=== PATIENT | female | born 1985 | race Caucasian/White ===

== ENCOUNTER 2017-02-22 21:17 | Emergency (ER) | payer OTHER ==
[2017-02-22] MEDS ORDERED: Proparacaine 0.5% Ophth Soln 15 ML Bottle EYELF ONE (21:41)
--- NOTE | 2017-02-22 21:41 | EDM.PDOC ---
ED HPI GENERAL MEDICAL PROBLEM - General Chief Complaint: Eye Problems Stated Complaint: PAIN IN LEFT Time Seen by Provider: 02/22/17 21:38 Source of Information: Reports: Patient History Limitations: Reports: No Limitations - History of Present Illness INITIAL COMMENTS - FREE TEXT/NARRATIVE: HISTORY AND PHYSICAL: []31-year-old female presents with left eye pain that started this morning. she relates no injury History of Present Illness: [Patient awakened this morning and had eye pain continues to have eye pain 9:40 at night] Review of Systems: As per history of present illness and below otherwise all systems reviewed and negative. Past medical history: As per history of present illness and as reviewed below otherwise noncontributory. Surgical history: As per history of present illness and as reviewed below otherwise noncontributory. Social history: No reported history of drug or alcohol abuse. Family history: As per history of present illness and as reviewed below otherwise noncontributory. Physical exam: Patient is sitting quietly on rubbing her eyes she states she only started rubbing her eye a couple hours ago. SHe did try irrigation with saline HEENT: Atraumatic, normocehpalic, pupils reactive, negative for conjunctival pallor or scleral icterus, mucous membranes moist, throat clear, neck supple, nontender, trachea midline. Lungs: Clear to auscultation, breath sounds equal bilaterally, chest non tender. Heart: S1S2, regular, negative for clicks, rubs, or JVD. Neuro: Awake, alert, oriented. Cranial nerves II through XII unremarkable. Cerebellum unremarkable. Motor and sensory unremarkable throughout. Exam nonfocal. Proparacaine drops were instilled in the left eye with appropriate anesthesia effect fluorescein strip was utilized under a Wood's lamp no abrasions or foreign bodies were noted. Mild edema noted to the inner portion of her upper eyelid towards the inner canthus.irrigation of 50 mL normal saline Diagnostics: [] Therapeutics: [Proparacaine drops] Impression: []#1 eye pain #2 stye Plan: []Tobramycin ophthalmic drops 2 drops 3 times a day 3 days Definitive disposition and diagnosis as appropriate pending reevaluation and review of above. 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: Musculoskeletal History: Reports: Fracture Neurological History: Reports: None Psychiatric History: Reports: Bipolar, Depression Endocrine/Metabolic History: Reports: None Hematologic History: Reports: None Immunologic History: Reports: None Oncologic (Cancer) History: Reports: None Dermatologic History: Reports: None - Past Surgical History HEENT Surgical History: Reports: Adenoidectomy, Myringotomy w Tube(s), Tonsillectomy Female Surgical History: Reports: Section, Tubal Ligation Social & Family History - Family History Family Medical History: Noncontributory - Tobacco Use Smoking Status *Q: Current Every Day Smoker (ppd) Years of Tobacco use: 18 Packs/Tins Daily: 1 Used Tobacco, but Quit: No Second Hand Smoke Exposure: Yes - Recreational Drug Use Recreational Drug Use: No Drug Use in Last 12 Months: No ED ROS GENERAL - Review of Systems Review Of Systems: ROS reveals no pertinent complaints other than HPI. ED EXAM GENERAL W FULL EYE - Physical Exam Exam: See Below (see dictation) Course - Vital Signs Last Recorded V/S: Last Vital Signs Temp 36.6 C 02/22/17 21:36 Pulse 89 02/22/17 21:36 Resp 18 02/22/17 21:36 BP 107/70 02/22/17 21:36 Pulse Ox 97 02/22/17 21:36 - Orders/Labs/Meds Meds: Medications Discontinued Medications Generic Name Dose Route Start Last Admin Trade Name Mariola PRN Reason Stop Dose Admin Proparacaine HCl 2 ml 02/22/17 21:41 Proparacaine 0.5% Ophth Soln EYELF 02/22/17 21:42 ONETIME ONE Water 100 ml 02/22/17 21:54 Eye Wash Irrigation Soln EYELF 02/22/17 21:55 ONETIME ONE Departure - Departure Time of Disposition: 22:06 Disposition: Home, Self-Care 01 Condition: good Clinical Impression: Sty, internal - Discharge Information Forms: ED Department Discharge
[2017-02-22] MEDS ORDERED: Distilled Water Ophth Irrig Soln 120 ML Bottle EYELF ONE (21:54)
[2017-02-22 22:36] VITALS: BP 103/67
== END 2017-02-22 22:26 | disposition home or self-care (01) ==
LOC: MW.ED 21:17
DX: H00.014 Hordeolum externum left upper eyelid (principal); F31.9 Bipolar disorder, unspecified; F17.210 Nicotine dependence, cigarettes, uncomplicated; Z98.890 Other specified postprocedural states; Z79.899 Other long term (current) drug therapy
CPT/HCPCS: 99283

== ENCOUNTER 2017-07-16 15:41 | Emergency (ER) | payer SELFPAY ==
--- NOTE | 2017-07-16 15:51 | EDM.PDOC ---
ED HPI GENERAL MEDICAL PROBLEM - General Stated Complaint: CHEST PAIN Time Seen by Provider: 07/16/17 15:48 - History of Present Illness INITIAL COMMENTS - FREE TEXT/NARRATIVE: HISTORY AND PHYSICAL: History of present illness: Patient 32-year-old female sensory concern of chest pain is vaguely described without associated shortness breath palpitations nausea vomiting or diaphoresis patient denies trauma denies fever chills Review of systems: As per history of present illness and below otherwise all systems reviewed and negative. Past medical history: As per history of present illness and as reviewed below otherwise noncontributory. Surgical history: As per history of present illness and as reviewed below otherwise noncontributory. Social history: No reported history of drug or alcohol abuse. Family history: As per history of present illness and as reviewed below otherwise noncontributory. Physical exam: HEENT: Atraumatic, normocephalic, pupils reactive, negative for conjunctival pallor or scleral icterus, mucous membranes moist, throat clear, neck supple, nontender, trachea midline. Lungs: Clear to auscultation, breath sounds equal bilaterally, chest nontender. Heart: S1S2, regular, negative for clicks, rubs, or JVD. Abdomen: Soft, nondistended, nontender. Negative for masses or hepatosplenomegaly. Negative for costovertebral tenderness. Pelvis: Stable nontender. Genitourinary: Deferred. Rectal: Deferred. Extremities: Atraumatic, negative for cords or calf pain. Neurovascular unremarkable. Neuro: Awake, alert, oriented. Cranial nerves II through XII unremarkable. Cerebellum unremarkable. Motor and sensory unremarkable throughout. Exam nonfocal. Diagnostics: Chest x-ray EKG Therapeutics: None Impression: #1 atypical chest pain Definitive disposition and diagnosis as appropriate pending reevaluation and review of above. 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: Musculoskeletal History: Reports: Fracture Neurological History: Reports: None Psychiatric History: Reports: Bipolar, Depression Endocrine/Metabolic History: Reports: None Hematologic History: Reports: None Immunologic History: Reports: None Oncologic (Cancer) History: Reports: None Dermatologic History: Reports: None - Past Surgical History HEENT Surgical History: Reports: Adenoidectomy, Myringotomy w Tube(s), Tonsillectomy Female Surgical History: Reports: Section, Tubal Ligation Social & Family History - Family History Family Medical History: Noncontributory - Tobacco Use Smoking Status *Q: Current Every Day Smoker (ppd) Years of Tobacco use: 18 Packs/Tins Daily: 1 Used Tobacco, but Quit: No Second Hand Smoke Exposure: Yes - Recreational Drug Use Recreational Drug Use: No Drug Use in Last 12 Months: No ED ROS GENERAL - Review of Systems Review Of Systems: ROS reveals no pertinent complaints other than HPI. ED EXAM, GENERAL - Physical Exam Exam: See Below (Dictation) Course - Orders/Labs/Meds Orders: Active Orders 24 hr Category Date Time Status Chest 1V Frontal [CR] Stat Exams 07/16/17 15:50 Ordered Departure - Departure Time of Disposition: 15:51 Disposition: Home, Self-Care 01 Condition: Good Clinical Impression: Atypical chest pain - Discharge Information Additional Instructions: The following information is given to patients seen in the emergency department who are being discharged to home. This information is to outline your options for follow-up care. We provide all patients seen in our emergency department with a follow-up referral. The need for follow-up, as well as the timing and circumstances, are variable depending upon the specifics of your emergency department visit. If you don't have a primary care physician on staff, we will provide you with a referral. We always advise you to contact your personal physician following an emergency department visit to inform them of the circumstance of the visit and for follow-up with them and/or the need for any referrals to a consulting specialist. The emergency department will also refer you to a specialist when appropriate. This referral assures that you have the opportunity for followup care with a specialist. All of these measure are taken in an effort to provide you with optimal care, which includes your followup. Under all circumstances we always encourage you to contact your private physician who remains a resource for coordinating your care. When calling for followup care, please make the office aware that this follow-up is from your recent emergency room visit. If for any reason you are refused follow-up, please contact the [facility] emergency department at and asked to speak to the emergency department charge nurse. Follow-up Primary medical doctor 1-2 days return as needed as discussed - My Orders Last 24 Hours: My Active Orders 07/16/17 15:50 Chest 1V Frontal [CR] Stat - Assessment/Plan Last 24 Hours: My Active Orders 07/16/17 15:50 Chest 1V Frontal [CR] Stat
[2017-07-16 16:01] VITALS: BP 120/48
--- NOTE | 2017-07-16 16:18 | CR ---
EXAMINATION: PA chest radiograph. HISTORY: Shortness of breath. FINDINGS: The trachea is midline. The cardiomediastinal silhouette is within normal limits. No pulmonary infilt rates, effusions or pneumothorax. Osseous structures appear unremarkable. IMPRESSION: No acute cardiopulmonary process.
== END 2017-07-16 17:15 | disposition home or self-care (01) ==
LOC: MW.ED 15:41
DX: R07.89 Other chest pain (principal); F17.210 Nicotine dependence, cigarettes, uncomplicated; F31.9 Bipolar disorder, unspecified; Z79.899 Other long term (current) drug therapy
CPT/HCPCS: 71010; 71010-26; 99282; 99285-25

== ENCOUNTER 2017-07-22 04:22 | Emergency (ER) | payer SELFPAY ==
[2017-07-22] MEDS ORDERED: Phenazopyridine 200 MG Tab PO ONE (04:29)
[2017-07-22] MEDS ORDERED: Ketorolac 60 MG/2 ML SDV IM ONE (04:29)
--- NOTE | 2017-07-22 04:29 | EDM.PDOC ---
ED HPI GENERAL MEDICAL PROBLEM - General Stated Complaint: ABDOMINAL CRAMPING, POSS BLADDER INFECTION Time Seen by Provider: 07/22/17 04:27 - History of Present Illness INITIAL COMMENTS - FREE TEXT/NARRATIVE: HISTORY AND PHYSICAL: History of present illness: Patient 32-year-old female presents with a concern of frequency discomfort and hesitancy with urination. She has some suprapubic discomfort denies back pain denies fever chills nausea vomiting or other complaints Review of systems: As per history of present illness and below otherwise all systems reviewed and negative. Past medical history: As per history of present illness and as reviewed below otherwise noncontributory. Surgical history: As per history of present illness and as reviewed below otherwise noncontributory. Social history: No reported history of drug or alcohol abuse. Family history: As per history of present illness and as reviewed below otherwise noncontributory. Physical exam: HEENT: Atraumatic, normocephalic, pupils reactive, negative for conjunctival pallor or scleral icterus, mucous membranes moist, throat clear, neck supple, nontender, trachea midline. Lungs: Clear to auscultation, breath sounds equal bilaterally, chest nontender. Heart: S1S2, regular, negative for clicks, rubs, or JVD. Abdomen: Soft, nondistended, mild suprapubic discomfort. Negative for masses or hepatosplenomegaly. Negative for costovertebral tenderness. Pelvis: Stable nontender. Genitourinary: Deferred. Rectal: Deferred. Extremities: Atraumatic, negative for cords or calf pain. Neurovascular unremarkable. Neuro: Awake, alert, oriented. Cranial nerves II through XII unremarkable. Cerebellum unremarkable. Motor and sensory unremarkable throughout. Exam nonfocal. Diagnostics: UA urine C&S UCG Therapeutics: Toradol 60 mg IM Pyridium 200 mg by mouth Impression: #1 dysuria rule out UTI Definitive disposition and diagnosis as appropriate pending reevaluation and review of above. 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: Musculoskeletal History: Reports: Fracture Neurological History: Reports: None Psychiatric History: Reports: Bipolar, Depression Endocrine/Metabolic History: Reports: None Hematologic History: Reports: None Immunologic History: Reports: None Oncologic (Cancer) History: Reports: None Dermatologic History: Reports: None - Past Surgical History HEENT Surgical History: Reports: Adenoidectomy, Myringotomy w Tube(s), Tonsillectomy Female Surgical History: Reports: Section, Tubal Ligation Social & Family History - Family History Family Medical History: Noncontributory - Tobacco Use Smoking Status *Q: Current Every Day Smoker Years of Tobacco use: 10 Packs/Tins Daily: 1 Used Tobacco, but Quit: No Second Hand Smoke Exposure: Yes - Recreational Drug Use Recreational Drug Use: No Drug Use in Last 12 Months: No ED ROS GENERAL - Review of Systems Review Of Systems: ROS reveals no pertinent complaints other than HPI. ED EXAM, GENERAL - Physical Exam Exam: See Below Course - Vital Signs Last Recorded V/S: Last Vital Signs Temp 36.6 C 07/22/17 04:22 Pulse 75 07/22/17 04:22 Resp 18 07/22/17 04:22 BP 134/90 07/22/17 04:22 Pulse Ox 100 07/22/17 04:22 - Orders/Labs/Meds Orders: Active Orders 24 hr Category Date Time Status CULTURE URINE [RM] Stat Lab 07/22/17 05:10 Received Labs: Laboratory Tests 07/22/17 07/22/17 Range/Units 05:10 05:10 Urine Color YELLOW Urine Appearance SLT CLOUDY Urine pH 7.0 (5.0-8.0) Ur Specific [place] 1.010 (1.001-1.035) Urine Protein NEGATIVE (NEGATIVE) mg/dL Urine Glucose (UA) NEGATIVE (NEGATIVE) mg/dL Urine Ketones NEGATIVE (NEGATIVE) mg/dL Urine Occult Blood NEGATIVE (NEGATIVE) Urine Nitrite NEGATIVE (NEGATIVE) Urine Bilirubin NEGATIVE (NEGATIVE) Urine Urobilinogen 0.2 (<2.0) EU/dL Ur Leukocyte Esterase TRACE (NEGATIVE) Urine HCG, Qual NEGATIVE (NEGATIVE) Meds: Medications Discontinued Medications Generic Name Dose Route Start Last Admin Trade Name Freq PRN Reason Stop Dose Admin Ketorolac Tromethamine 60 mg 07/22/17 04:29 07/22/17 04:39 Toradol IM 07/22/17 04:30 60 mg ONETIME ONE Administration Phenazopyridine HCl 200 mg 07/22/17 04:29 07/22/17 04:47 Pyridium PO 07/22/17 04:30 200 mg ONETIME ONE Administration Departure - Departure Time of Disposition: 06:05 Disposition: Home, Self-Care 01 Condition: Good Clinical Impression: History of bipolar disorder, Encounter for medical screening examination, Dysuria - Discharge Information Referrals: PCP,None [Primary Care Provider] - Additional Instructions: The following information is given to patients seen in the emergency department who are being discharged to home. This information is to outline your options for follow-up care. We provide all patients seen in our emergency department with a follow-up referral. The need for follow-up, as well as the timing and circumstances, are variable depending upon the specifics of your emergency department visit. If you don't have a primary care physician on staff, we will provide you with a referral. We always advise you to contact your personal physician following an emergency department visit to inform them of the circumstance of the visit and for follow-up with them and/or the need for any referrals to a consulting specialist. The emergency department will also refer you to a specialist when appropriate. This referral assures that you have the opportunity for followup care with a specialist. All of these measure are taken in an effort to provide you with optimal care, which includes your followup. Under all circumstances we always encourage you to contact your private physician who remains a resource for coordinating your care. When calling for followup care, please make the office aware that this follow-up is from your recent emergency room visit. If for any reason you are refused follow-up, please contact the [facility] emergency department at and asked to speak to the emergency department charge nurse. Cipro and Pyridium as prescribed push fluids follow primary medical doctor 1-2 days return as needed as discussed - My Orders Last 24 Hours: My Active Orders 07/22/17 05:10 CULTURE URINE [RM] Stat - Assessment/Plan Last 24 Hours: My Active Orders 07/22/17 05:10 CULTURE URINE [RM] Stat
[2017-07-22 06:06] VITALS: BP 108/62
== END 2017-07-22 06:15 | disposition home or self-care (01) ==
LOC: MW.ED 04:22
DX: R30.0 Dysuria (principal); F17.210 Nicotine dependence, cigarettes, uncomplicated; F31.9 Bipolar disorder, unspecified
CPT/HCPCS: 81003; 81025; 87086; 96372; 99284; A9270; J1885

== ENCOUNTER 2017-08-27 18:42 | Emergency (ER) | payer BC, OTHER ==
[2017-08-27] MEDS ORDERED: Ketorolac 60 MG/2 ML SDV IM ONE (18:56)
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
[2017-08-27 21:51] VITALS: BP 99/63
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
== END 2017-08-27 21:21 | disposition home or self-care (01) ==
LOC: MW.ED 18:42
DX: S16.1XXA Strain of muscle, fascia and tendon at neck level, initial encounter (principal); S00.03XA Contusion of scalp, initial encounter; S40.012A Contusion of left shoulder, initial encounter; F17.210 Nicotine dependence, cigarettes, uncomplicated; F31.9 Bipolar disorder, unspecified; Z79.899 Other long term (current) drug therapy; V47.5XXA Car driver injured in collision with fixed or stationary object in traffic accident, initial encounter
CPT/HCPCS: 70450; 71010; 72125; 73030; 96372; 99284; G0390; J1885; J2360; 99285

== ENCOUNTER 2017-12-06 09:34 | Day surgery (SDC) | payer BC ==
[~2017-12-06 09:34] MED LIST: Lactated Ringers 1,000 ML IV SCH
--- NOTE | 2017-12-06 10:28 | PCM.PREANE ---
Preanesthetic Assessment - Anesthesia/Transfusion/Family Hx Anesthesia History: Prior Anesthesia Without Reaction (has hx of high spinal) Other Type of Anesthesia Reaction Comment: "states it doesnt take much to put me under" Family History of Anesthesia Reaction: No Transfusion History: No Prior Transfusion(s) - Review of Systems General: No Symptoms Pulmonary: No Symptoms Cardiovascular: No Symptoms Gastrointestinal: No Symptoms Neurological: No Symptoms Other: Reports: None - Physical Assessment NPO Status Date: 12/05/17 O2 Sat by Pulse Oximetry: 98 Respiratory Rate: 16 Vital Signs: Last Vital Signs Temp 36.4 C 12/06/17 09:49 Pulse 92 12/06/17 09:49 Resp 16 12/06/17 09:49 BP 115/73 12/06/17 09:49 Pulse Ox 98 12/06/17 09:49 Height: 1.7 m Weight: 79.832 kg ASA Class: 2 Mental Status: Alert & Oriented x3 Dentition: Reports: Normal Dentition ROM/Head Extension: Full Lungs: Clear to Auscultation, Normal Respiratory Effort Cardiovascular: Regular Rate, Regular Rhythm - Allergies Allergies/Adverse Reactions: Allergies Allergy/AdvReac Type Severity Reaction Status Date / Time No Known Allergies Allergy Verified 08/27/17 19:14 - Anesthesia Plan Pre-Op Medication Ordered: None (PMH: adhd, bipolar, gerd,ibs,rad) - Acknowledgements Anesthesia Type Planned: MAC Pt an Appropriate Candidate for the Planned Anesthesia: Yes Alternatives and Risks of Anesthesia Discussed w Pt/Guardian: Yes Pt/Guardian Understands and Agrees with Anesthesia Plan: Yes PreAnesthesia Questionnaire - Past Health History Medical/Surgical History: Denies Medical/Surgical History HEENT History: Reports: Allergic Rhinitis, Other (See Below) Other HEENT History: wears glasses Cardiovascular History: Reports: None Respiratory History: Reports: None Gastrointestinal History: Reports: None Genitourinary History: Reports: UTI, Recurrent 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: Musculoskeletal History: Reports: Fracture Neurological History: Reports: None Psychiatric History: Reports: Bipolar, Depression Endocrine/Metabolic History: Reports: None Hematologic History: Reports: None Immunologic History: Reports: None Oncologic (Cancer) History: Reports: None Dermatologic History: Reports: None - Past Surgical History Head Surgeries/Procedures: Reports: None HEENT Surgical History: Reports: Adenoidectomy, Myringotomy w Tube(s), Tonsillectomy Cardiovascular Surgical History: Reports: None Respiratory Surgical History: Reports: None GI Surgical History: Reports: Colonoscopy Female Surgical History: Reports: Section, LEEP, Tubal Ligation Other Female Surgeries/Procedures: x4 Endocrine Surgical History: Reports: None Neurological Surgical History: Reports: None Other Musculoskeletal Surgeries/Procedures:: hx ORIF of left fx tib fib Dermatological Surgical History: Reports: None - SUBSTANCE USE Smoking Status *Q: Current Every Day Smoker Tobacco Use Within Last Twelve Months: Cigarettes Second Hand Smoke Exposure: Yes Recreational Drug Use History: No - HOME MEDS Home Medications: Home Meds lamoTRIgine [Lamotrigine] 200 mg PO DAILY 12/08/15 [History] Cetirizine HCl [Zyrtec] 1 tab PO ASDIRECTED PRN 06/12/16 [History] - CURRENT (IN HOUSE) MEDS Current Meds: Current Medications Lactated Ringer's (Ringers, Lactated) 1,000 mls @ 125 mls/hr IV ASDIRECTED [facility] Last Admin: 12/06/17 09:50 Dose: 125 mls/hr
[2017-12-06] MEDS ORDERED: Midazolam 1 MG/ML 2 ML SDV ONE (11:03)
[2017-12-06] MEDS ORDERED: Propofol 200 MG/20 ML SDV ONE ×4 (11:03→12:59)
[2017-12-06] MEDS ORDERED: Lidocaine 2% 5 ML SDV ONE (11:03)
[2017-12-06] MEDS ORDERED: fentaNYL 100 MCG/2 ML SDV ONE ×2 (11:04→13:50)
[2017-12-06] MEDS ORDERED: Ondansetron 4 MG Tab.DIS PO PRN (13:21)
--- NOTE | 2017-12-06 13:25 | PCM.OPNOTE ---
- General Post-Op/Procedure Note Date of Surgery/Procedure: 12/06/17 Operative Procedure(s): Esophagogastroduodenoscopy with gastric biopsies. Colonoscopy w/ rectal rectal polypectomy 2 Pre Op Diagnosis: Personal history of colon polyps. Melena. Post-Op Diagnosis: Gastritis with resolving gastric ulcer. Rectal polyps 2 Anesthesia Technique: MAC (ASA II) Primary Surgeon: Stepan Goel [employer] Production Associate: Nimesh Plascencia Condition: Good Free Text/Narrative:: Dictation [id number] CPT CODE [id number]
[2017-12-06] MEDS ORDERED: Lactated Ringers 1,000 ML IV SCH (13:30)
--- NOTE | 2017-12-06 13:56 | PCM.POSTAN ---
POST ANESTHESIA ASSESSMENT - MENTAL STATUS Mental Status: Alert, Oriented Free Text/Narrative:: complaint of pain with flair of exxageration....responded to narcotic, but probably colonic gas effect; discussed with Dr. Goel. - RESPIRATORY Respiratory Status: Respiratory Rate WNL, Airway Patent, O2 Saturation Stable - CARDIOVASCULAR CV Status: Pulse Rate WNL, Blood Pressure Stable - GASTROINTESTINAL GI Status: No Symptoms - POST OP HYDRATION Hydration Status: Adequate & Stable
[2017-12-06] MEDS ORDERED: fentaNYL 100 MCG/2 ML SDV IVPUSH PRN (14:10)
[2017-12-06 14:22] VITALS: BP 98/59
--- NOTE | 2017-12-06 14:24 | PCM48HPAN ---
Post Anesthesia Note - EVALUATION WITHIN 48HRS OF ANESTHETIC Vital Signs in Normal Range: Yes Patient Participated in Evaluation: Yes Respiratory Function Stable: Yes Airway Patent: Yes Cardiovascular Function Stable: Yes Hydration Status Stable: Yes Pain Control Satisfactory: Yes Nausea and Vomiting Control Satisfactory: Yes Mental Status Recovered: Yes Resp Rate: 14 - COMMENTS/OBSERVATIONS Free Text/Narrative:: Passing gas and requesting to go home. Little pain complaint as compared to earlier.
--- NOTE | 2017-12-06 14:42 | OR ---
SURGEON: Stepan Goel M.D. DATE OF PROCEDURE: 12/06/2017 OPERATION PERFORMED: Colonoscopy with cold distal rectal polypectomy x2. ORE MIXER: Dr. Plascencia, PGY-3. ANESTHESIA: MAC. [employer] CLASSIFICATION: II. PREOPERATIVE DIAGNOSIS: Personal history of colon polyps. POSTOPERATIVE DIAGNOSIS: Rectal polyps x2. DESCRIPTION OF PROCEDURE: With the patient having completed esophagogastroduodenoscopy with biopsy, she was now converted to colonoscopy. The colonoscope was inserted into the rectum and advanced with moderate difficulty to the cecum where the colonoscope was retroflexed to visualize the ascending colon from below. The colonoscope was then slowly withdrawn. The cecum, ascending colon, hepatic flexure, transverse colon, splenic flexure, descending colon, and sigmoid colon showed no tumors, polyps, diverticula, or angiodysplastic changes. Once the colonoscope was withdrawn to the distal rectum, 2 small polyps were encountered and removed with the cold biopsy forceps. They were in the same area and sent as one specimen. The colonoscope was then retroflexed to visualize the anal orifice from above. No tumors, polyps, or acute hemorrhoidal changes were noted. The colonoscope was then straightened, the rectum aspirated, and the colonoscope removed. The patient tolerated the procedure well and was taken to recovery room in stable condition. LORI / OMA /[id number]
--- NOTE | 2017-12-06 19:30 | OR ---
SURGEON: Stepan Goel M.D. DATE OF PROCEDURE: 12/06/2017 OPERATION PERFORMED: Esophagogastroduodenoscopy with biopsy. PATIENT SERVICE TECHNICIAN PST: Dr. Plascencia PGY-3. ANESTHESIA: MAC. [place] CLASSIFICATION: II. PREOPERATIVE DIAGNOSIS: Personal history of melena. POSTOPERATIVE DIAGNOSES: 1. [id number] gastritis with healing distal gastric ulcer. 2. Hiatal hernia. DESCRIPTION OF PROCEDURE: The patient was taken to the endoscopy room, positioned on the endoscopy table in the left lateral decubitus position. Time-out was called for appropriate identification of patient and procedure. Monitored anesthesia care was provided. The bite block was placed between the patient's teeth. The gastroscope was inserted through the bite block and advanced without difficulty through the esophagus and stomach into the duodenum where examination was carried out in a retrograde fashion. The duodenum shows no acute inflammatory changes or ulcerations. Stomach does show [id number] gastritis with what appears to be a healing gastric ulcer site distally. Biopsies of this area were obtained. The gastroscope was retroflexed to visualize the proximal stomach. The patient does have a hiatal hernia that can be seen from below. No lesions were identified in the cardia of the stomach. The gastroscope was straightened and slowly withdrawn aspirating the stomach as the scope was withdrawn. No gastric polyps were identified. The GE junction was well defined. Hiatal hernia could be seen from above. No acute inflammatory changes were noted. The esophageal mucosa appears healthy throughout its entire length. The vocal cords were briefly visualized as the scope was withdrawn and noted to move symmetrically. The gastroscope was then removed with the patient having tolerated this portion of the procedure well. Following colonoscopy, she was taken to recovery room in stable condition. LORI / OMA /[id number]
== END 2017-12-06 14:24 | disposition home or self-care (01) ==
LOC: MW.SDS 09:34
PROVIDERS: ATTEND Surgery
DX: K62.1 Rectal polyp (principal); K29.50 Unspecified chronic gastritis without bleeding; K44.9 Diaphragmatic hernia without obstruction or gangrene; F90.9 Attention-deficit hyperactivity disorder, unspecified type; F41.9 Anxiety disorder, unspecified; J45.909 Unspecified asthma, uncomplicated; F31.9 Bipolar disorder, unspecified; K21.9 Gastro-esophageal reflux disease without esophagitis; H61.20 Impacted cerumen, unspecified ear; K58.9 Irritable bowel syndrome, unspecified; E66.3 Overweight; J01.90 Acute sinusitis, unspecified; F17.210 Nicotine dependence, cigarettes, uncomplicated; Z86.010 Personal history of colon polyps; Z80.0 Family history of malignant neoplasm of digestive organs; Z79.899 Other long term (current) drug therapy; Z68.27 Body mass index [BMI] 27.0-27.9, adult
CPT/HCPCS: 43239; 45380; 81025; 88305; 88312; J2250; J3010; J7120; J2704

== ENCOUNTER 2019-05-10 07:53 | Emergency (ER) | payer BC ==
[2019-05-10] MEDS ORDERED: Diphtheria,Pertussis(Acell),Tetanus Vaccine 0.5 ML Syringe IM ONE (08:16)
--- NOTE | 2019-05-10 08:19 | EDM.PDOC ---
ED HPI GENERAL MEDICAL PROBLEM - General Chief Complaint: Upper Extremity Injury/Pain Stated Complaint: finger injury Time Seen by Provider: 05/10/19 08:10 - History of Present Illness INITIAL COMMENTS - FREE TEXT/NARRATIVE: HISTORY AND PHYSICAL: History of present illness: Patient 34-year-old white female who presents with a concern of injury to first digit of left hand in the form of a flap type laceration to the distal aspect. There is no trauma concern she denies up-to-date tetanus Review of systems: As per history of present illness and below otherwise all systems reviewed and negative. Past medical history: As per history of present illness and as reviewed below otherwise noncontributory. Surgical history: As per history of present illness and as reviewed below otherwise noncontributory. Social history: No reported history of drug or alcohol abuse. Family history: As per history of present illness and as reviewed below otherwise noncontributory. Physical exam: HEENT: Atraumatic, normocephalic, pupils reactive, negative for conjunctival pallor or scleral icterus, mucous membranes moist, throat clear, neck supple, nontender, trachea midline. Lungs: Clear to auscultation, breath sounds equal bilaterally, chest nontender. Heart: S1S2, regular, negative for clicks, rubs, or JVD. Abdomen: Soft, nondistended, nontender. Negative for masses or hepatosplenomegaly. Negative for costovertebral tenderness. Pelvis: Stable nontender. Genitourinary: Deferred. Rectal: Deferred. Extremities: First digit left hand has a flap type laceration with good hemostasis is relatively small proximal half centimeter neurovascular exam CMS unremarkable Neuro: Awake, alert, oriented. Cranial nerves II through XII unremarkable. Cerebellum unremarkable. Motor and sensory unremarkable throughout. Exam nonfocal. Diagnostics: None Therapeutics: Wound was irrigated closed with 0.9 normal saline was good hemostasis flap was secured with adhesive finger splint was applied tetanus was updated Impression: #1 acute injury first digit left hand ( flap type laceration) Definitive disposition and diagnosis as appropriate pending reevaluation and review of above. - Related Data Allergies Allergy/AdvReac Type Severity Reaction Status Date / Time No Known Allergies Allergy Verified 08/27/17 19:14 Home Meds: Home Meds lamoTRIgine [Lamotrigine ER] 200 mg PO DAILY 12/08/15 [History] Cetirizine HCl [Zyrtec] 1 tab PO ASDIRECTED PRN 06/12/16 [History] Past Medical History - Past Health History Medical/Surgical History: Denies Medical/Surgical History HEENT History: Reports: Allergic Rhinitis, Other (See Below) Other HEENT History: wears glasses Cardiovascular History: Reports: None Respiratory History: Reports: None Gastrointestinal History: Reports: None Genitourinary History: Reports: UTI, 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: Musculoskeletal History: Reports: Fracture Neurological History: Reports: None Psychiatric History: Reports: Bipolar, Depression Endocrine/Metabolic History: Reports: None Hematologic History: Reports: None Immunologic History: Reports: None Oncologic (Cancer) History: Reports: None Dermatologic History: Reports: None - Past Surgical History Head Surgeries/Procedures: Reports: None HEENT Surgical History: Reports: Adenoidectomy, Myringotomy w Tube(s), Tonsillectomy Cardiovascular Surgical History: Reports: None Respiratory Surgical History: Reports: None GI Surgical History: Reports: Colonoscopy Female Surgical History: Reports: Section, LEEP, Tubal Ligation Other Female Surgeries/Procedures: x4 Endocrine Surgical History: Reports: None Neurological Surgical History: Reports: None Other Musculoskeletal Surgeries/Procedures:: hx ORIF of left fx tib fib Dermatological Surgical History: Reports: None Social & Family History - Family History Family Medical History: Noncontributory Review of Systems - Review of Systems Review Of Systems: ROS reveals no pertinent complaints other than HPI. ED EXAM, GENERAL - Physical Exam Exam: See Below (See dictation) Departure - Departure Time of Disposition: 08:18 Disposition: Home, Self-Care 01 Condition: Good Clinical Impression: Hand injury - Discharge Information Referrals: PCP,Unknown [Primary Care Provider] - Additional Instructions: The following information is given to patients seen in the emergency department who are being discharged to home. This information is to outline your options for follow-up care. We provide all patients seen in our emergency department with a follow-up referral. The need for follow-up, as well as the timing and circumstances, are variable depending upon the specifics of your emergency department visit. If you don't have a primary care physician on staff, we will provide you with a referral. We always advise you to contact your personal physician following an emergency department visit to inform them of the circumstance of the visit and for follow-up with them and/or the need for any referrals to a consulting specialist. The emergency department will also refer you to a specialist when appropriate. This referral assures that you have the opportunity for followup care with a specialist. All of these measure are taken in an effort to provide you with optimal care, which includes your followup. Under all circumstances we always encourage you to contact your private physician who remains a resource for coordinating your care. When calling for followup care, please make the office aware that this follow-up is from your recent emergency room visit. If for any reason you are refused follow-up, please contact the [facility] emergency department at and asked to speak to the emergency department charge nurse. Follow-up primary medical doctor as needed as discussed return as needed as discussed
[2019-05-10] MEDS ORDERED: Octyl 2-Cyanoacrylate 1 APPLIC TUBE TOP ONE (08:27)
[2019-05-10 08:45] VITALS: BP 120/72
== END 2019-05-10 08:45 | disposition home or self-care (01) ==
LOC: MW.ED 07:53
DX: S61.012A Laceration without foreign body of left thumb without damage to nail, initial encounter (principal); Z23 Encounter for immunization; Z79.899 Other long term (current) drug therapy; W26.0XXA Contact with knife, initial encounter
CPT/HCPCS: 12001; 90471; 90715; 99282; A9270

== ENCOUNTER 2019-11-22 17:20 | Emergency (ER) | payer BC ==
--- NOTE | 2019-11-22 18:04 | CR ---
Chest: 2 views of the chest were obtained. Comparison: Prior chest x-ray of 08/27/17. Heart size and mediastinum are normal. Lungs are clear with no acute parenchymal change. Bony structures show scattered disc space narrowing within the thoracic spine with minimal scattered endplate osteophytes. Impression: 1. Findings believed to be incidental as noted above. 2. Nothing acute is seen. Diagnostic code #2 This report was dictated in Mountain Standard Time
[2019-11-22 18:13] LABS: BLOOD UREA NITROGEN,BUN 15 mg/dL (7.0-18.0); CARBON DIOXIDE,CO2 26.6 mmol/L (21.0-32.0); CHLORIDE,CL 103 mmol/L (98-107); GLUCOSE RANDOM 85 mg/dL (74-106); POTASSIUM,K 4.1 mmol/L (3.5-5.1); SODIUM,NA 139 mmol/L (136-145)
--- NOTE | 2019-11-22 18:20 | EDM.PDOC ---
ED HPI GENERAL MEDICAL PROBLEM - General Chief Complaint: Cardiovascular Problem Stated Complaint: CHEST PAIN Time Seen by Provider: 11/22/19 17:24 - History of Present Illness INITIAL COMMENTS - FREE TEXT/NARRATIVE: HPI 34-year-old obese female smoker with bipolar one presents for evaluation of palpitations is been present on and off throughout the day today. No fevers, chills, current chest pain, current symptomatology, no history of known arrhythmia, no history of DVT or PE. M/S/F/SocHx notable for: please see HPI; remainder reviewed with patient and in chart. ROS: Negative constitutional, eye, cardiovascular, pulmonary, GI, , MSK, skin , neurologic, psychiatric, endocrine unless noted in the HPI. Exam HR 91, RR 18, BP 142/83, T 36.4C, SaO2 100% on room air. Gen: Pleasant, non-toxic appearing, resting comfortably. HEENT: NC, AT, PEERL, EOMI. Resp: Clear to auscultation bilaterally, normal work of breathing, no accessory muscle usage. Card: Regular rate and rhythm with no murmurs, rubs, or gallops, extremities warm and well perfused. GI: Non-tender to palpation throughout all quadrants, no focal tenderness at McBurney's point, negative Bronson's sign, non-distended, no rebound or guarding. : No suprapubic tenderness to palpation. MSK: No visible deformities, strength and tone without visually appreciable deficit. Skin: Normal color with no visible lesions. Neuro: alert and oriented 3, no facial asymmetry, vision and hearing WNL. Psych: Mood and affect appropriate. Labs / Imaging: EKG: SR 70 bpm, no WA segment depressions, WA interval 120 ms, QRS 86, no ST segment elevations or depressions, no discordant T wave inversions, no hyperacute T waves, QTc 442 ms. CXR: nothing acute is seen. WBC 9.97, Hb 13.4, d-dimer 0.50, sodium 139, potassium 4.1, magnesium 2.1, troponin <0.050, TSH 2.31, hCG negative. MDM Previous chart, nursing note, labs, imaging, and vitals reviewed. A: 34-year-old obese female smoker with bipolar one presents for evaluation of palpitations is been present on and off throughout the day today. DDx: dehydration, electrolyte abnormalities, pericarditis, myocarditis, PE, sinus arrhythmia, transient arrhythmia. Evaluation: patient without discernible abnormalities on history or exam, a CT without evidence of arrhythmia, conduction abnormalities, pericarditis, myocarditis. Troponin nondetectable. CBC, CMP, ACM, TSH within normal limits. D- dimer negative. Negative hCG. Patient instructed to follow-up with her PCP and return to the emergency department for any further or concerning symptoms. Impression: palpitations. (please reference below for remainder of encounter information) Eliot' (Signs & Sx of DVT - 0, PE is #1 or equally likelihood - 0, HR > 100 - 0 , immobilization of >=3 days or surgery in last 28 days - 0, prior DVT or PE - 0 , hemoptysis - 0, malignancy w/ tx in last 6 mo or palliative - 0). chest Pain Score (Numeric/FACES): 3 - Related Data Allergies Allergy/AdvReac Type Severity Reaction Status Date / Time No Known Allergies Allergy Verified 11/22/19 17:22 Home Meds: Home Meds lamoTRIgine [Lamotrigine ER] 200 mg PO DAILY 12/08/15 [History] Cetirizine HCl [Zyrtec] 1 tab PO ASDIRECTED PRN 06/12/16 [History] FLUoxetine [PROzac] 40 mg PO DAILY 11/22/19 [History] Past Medical History - Past Health History Medical/Surgical History: Denies Medical/Surgical History HEENT History: Reports: Allergic Rhinitis, Other (See Below) Other HEENT History: wears glasses Cardiovascular History: Reports: None Respiratory History: Reports: None Gastrointestinal History: Reports: None Genitourinary History: Reports: UTI, Recurrent 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: Musculoskeletal History: Reports: Fracture Neurological History: Reports: None Psychiatric History: Reports: Bipolar, Depression Endocrine/Metabolic History: Reports: None Hematologic History: Reports: None Immunologic History: Reports: None Oncologic (Cancer) History: Reports: None Dermatologic History: Reports: None - Infectious Disease History Infectious Disease History: Reports: None - Past Surgical History Head Surgeries/Procedures: Reports: None HEENT Surgical History: Reports: Adenoidectomy, Myringotomy w Tube(s), Tonsillectomy Cardiovascular Surgical History: Reports: None Respiratory Surgical History: Reports: None GI Surgical History: Reports: Colonoscopy Female Surgical History: Reports: Section, LEEP, Tubal Ligation Other Female Surgeries/Procedures: x4 Endocrine Surgical History: Reports: None Neurological Surgical History: Reports: None Other Musculoskeletal Surgeries/Procedures:: hx ORIF of left fx tib fib Dermatological Surgical History: Reports: None Social & Family History - Family History Family Medical History: Noncontributory - Tobacco Use Smoking Status *Q: Current Every Day Smoker Years of Tobacco use: 24 Packs/Tins Daily: 1 - Caffeine Use Caffeine Use: Reports: Energy Drinks - Recreational Drug Use Recreational Drug Use: No ED ROS GENERAL - Review of Systems Review Of Systems: See Below ED EXAM, GENERAL - Physical Exam Exam: See Below Course - Vital Signs Last Recorded V/S: Last Vital Signs Temp 36.6 C 11/22/19 18:05 Pulse 91 11/22/19 17:22 Resp 16 11/22/19 18:05 BP 125/77 11/22/19 18:05 Pulse Ox 99 11/22/19 18:05 - Orders/Labs/Meds Orders: Active Orders 24 hr Category Date Time Status EKG 12 Lead [EKG Documentation Completion] [RC] STAT Care 11/22/19 17:30 Active Labs: Laboratory Tests 11/22/19 11/22/19 11/22/19 Range/Units 17:30 17:30 17:30 WBC 9.97 (4.0-11.0) K/uL RBC 4.71 (4.30-5.90) M/uL Hgb 13.4 (12.0-16.0) g/dL Hct 41.0 (36.0-46.0) % MCV 87.0 (80.0-98.0) fL MCH 28.5 (27.0-32.0) pg MCHC 32.7 (31.0-37.0) g/dL RDW Std Deviation 47.2 (28.0-62.0) fl RDW Coeff of Ric 15 (11.0-15.0) % Plt Count 268 (150-400) K/uL MPV 9.20 (7.40-12.00) fL Neut % (Auto) 65.4 (48.0-80.0) % Lymph % (Auto) 25.6 (16.0-40.0) % Dixon % (Auto) 5.5 (0.0-15.0) % Eos % (Auto) 3.2 (0.0-7.0) % Baso % (Auto) 0.3 (0.0-1.5) % Neut # (Auto) 6.5 H (1.4-5.7) K/uL Lymph # (Auto) 2.6 H (0.6-2.4) K/uL Dixon # (Auto) 0.6 (0.0-0.8) K/uL Eos # (Auto) 0.3 (0.0-0.7) K/uL Baso # (Auto) 0.0 (0.0-0.1) K/uL Nucleated RBC % 0.0 /100WBC Nucleated RBCs # 0 K/uL D-Dimer, Quantitative 0.50 (0.0-0.50) mg/L FEU Sodium 139 (136-145) mmol/L Potassium 4.1 (3.5-5.1) mmol/L Chloride 103 (98-107) mmol/L Carbon Dioxide 26.6 (21.0-32.0) mmol/L BUN 15 (7.0-18.0) mg/dL Creatinine 0.7 (0.6-1.0) mg/dL Est Cr Clr Drug Dosing 110.12 mL/min Estimated GFR (MDRD) > 60.0 ml/min Glucose 85 (74-106) mg/dL Calcium 9.0 (8.5-10.1) mg/dL Magnesium 2.1 (1.8-2.4) mg/dL Troponin I < 0.050 (0.000-0.056) ng/mL TSH 3rd Generation 2.31 (0.36-3.74) uIU/mL HCG, Qual (NEG) 11/22/19 Range/Units 17:30 WBC (4.0-11.0) K/uL RBC (4.30-5.90) M/uL Hgb (12.0-16.0) g/dL Hct (36.0-46.0) % MCV (80.0-98.0) fL MCH (27.0-32.0) pg MCHC (31.0-37.0) g/dL RDW Std Deviation (28.0-62.0) fl RDW Coeff of Ric (11.0-15.0) % Plt Count (150-400) K/uL MPV (7.40-12.00) fL Neut % (Auto) (48.0-80.0) % Lymph % (Auto) (16.0-40.0) % Dixon % (Auto) (0.0-15.0) % Eos % (Auto) (0.0-7.0) % Baso % (Auto) (0.0-1.5) % Neut # (Auto) (1.4-5.7) K/uL Lymph # (Auto) (0.6-2.4) K/uL Dixon # (Auto) (0.0-0.8) K/uL Eos # (Auto) (0.0-0.7) K/uL Baso # (Auto) (0.0-0.1) K/uL Nucleated RBC % /100WBC Nucleated RBCs # K/uL D-Dimer, Quantitative (0.0-0.50) mg/L FEU Sodium (136-145) mmol/L Potassium (3.5-5.1) mmol/L Chloride (98-107) mmol/L Carbon Dioxide (21.0-32.0) mmol/L BUN (7.0-18.0) mg/dL Creatinine (0.6-1.0) mg/dL Est Cr Clr Drug Dosing mL/min Estimated GFR (MDRD) ml/min Glucose (74-106) mg/dL Calcium (8.5-10.1) mg/dL Magnesium (1.8-2.4) mg/dL Troponin I (0.000-0.056) ng/mL TSH 3rd Generation (0.36-3.74) uIU/mL HCG, Qual NEGATIVE (NEG) Departure - Departure Time of Disposition: 18:20 Disposition: Home, Self-Care 01 Clinical Impression: Palpitations Referrals: PCP,None [Primary Care Provider] - Additional Instructions: You were in seen in the [facility] Emergency Department for evaluation of palpitations. The time of your evaluation no clear abnormalities were noted. Please read and follow all of the instructions below. Please follow up with your primary care physician within 48 hours repeat evaluation further care as needed.. When calling for follow-up care, please make the office aware that this follow-up is from your recent emergency room visit. If for any reason you are refused follow-up, please contact the [facility] Emergency Department at and asked to speak to the emergency department charge nurse. Your care today was limited to identifying and treating emergent medical problems only. Many people have subtle differences in their test results that require follow up with their outpatient physician(s) to correctly determine if this represents a normal variation or concerning abnormality with respect to your specific health. The care given to you today was limited to identifying and treating emergent medical problems - you need to request a copy of all of your medical records from today's visit and follow up with your outpatient physician(s) to review both today's visit and your overall health. If you have any new symptoms or if you are at all concerned about your health please return immediately to the emergency department. Prescriptions: If you are uninsured or have financial difficulties with filling your prescription(s), you may consider using a free pharmacy discount service such as [employer] ([employer]) or [employer] ([employer]). These services allow you to search for a medication on your phone (or computer) and obtain a coupon that usually has a significant discount from the list guillory at a pharmacy. Your physician as well as [facility] does not have a financial relationship with either of these services. You may also wish to speak with your physician to determine if lower cost prescriptions are possible. Obtaining primary care: 1. [facility] provides pediatrics (children), family medicine (children, adults, and some obstetrical care), and internal medicine (adults). Further specialty care is also available. Same day appointments are available. They may be contacted at [phone] and are open Ryan through Saturday 8 AM to 5 PM. The [facility] clinics are located at [facility], [address] [place] [place] [address]. 2. [facility] offers family medicine, internal medicine, womens health, and further specialty care. [facility] may be contacted at [phone]. [facility] is located at [address] [place], [address]. 3. If you have health insurance, please also contact your insurer for a list of accepting providers under your policy, you may contact these providers for further health care. Occupational health: Work related injuries may consider following up with [facility], . Occupational health services are located at [address] [place] [address] and are open Saturday through Saturday from 7: 30 am to 5:00 pm. Obstetrical and Gynecological Care: [facility], , Saturday through Saturday 8 AM to 5 PM. [address] [place] [address]. Eyecare: If you have an eye injury you should follow up with your piano refinisher or with [facility], at [phone] or [phone] , they are located at [address] [place] [address]. Dental Care Amando Gao DDS. [address] [facility], [place], [place]. Ph. [phone] Everardo Gao DDS [place]. [address] [facility] [address], [place], [place]. Ph. Glenn Enriquez DDS. 10 09/17 [facility] [place]. Ph. [phone] Jose Brandon DDS. [address] [facility] 4 [place], [place]. Ph. [phone] Jae Mclaughlin DDS PC. [address] [facility] [address] [place], [place]. Ph. [phone] Rigo Hansen DDS. [address] [facility]. Ph. [phone] [facility]. [address] [facility], [place], [place]. Ph. [phone] [facility]. [address] [place] [address], [place], [place]. Ph. [phone] [facility] [address] [place] [phone]. Ph. [facility]. [address] [place] [address] [address] [facility]. [address], [place], [place]. Ph. [phone] Sepsis Event Note - Evaluation Sepsis Screening Result: No Definite Risk - Focused Exam Vital Signs: Vital Signs Temp Pulse Resp BP Pulse Ox 11/22/19 18:05 36.6 C 16 125/77 99 11/22/19 17:22 36.4 C 91 18 142/83 H 100 Date Exam was Performed: 11/22/19 Time Exam was Performed: 18:20 - My Orders Last 24 Hours: My Active Orders 11/22/19 17:30 EKG 12 Lead [EKG Documentation Completion] [] STAT - Assessment/Plan Last 24 Hours: My Active Orders 11/22/19 17:30 EKG 12 Lead [EKG Documentation Completion] [RC] STAT
[2019-11-22 18:41] VITALS: BP 122/74; PULSE 81
== END 2019-11-22 18:40 | disposition home or self-care (01) ==
LOC: MW.ED 17:20
DX: R00.2 Palpitations (principal); F17.210 Nicotine dependence, cigarettes, uncomplicated; E66.9 Obesity, unspecified; Z79.899 Other long term (current) drug therapy; F31.9 Bipolar disorder, unspecified; Z68.33 Body mass index [BMI] 33.0-33.9, adult
CPT/HCPCS: 36415; 71046; 71046-26; 80048; 83735; 84443; 84484; 84703; 85025; 85379; 93005; 99283; 99285-25

== ENCOUNTER 2019-12-27 21:26 | Emergency (ER) | payer BC ==
--- NOTE | 2019-12-27 21:37 | EDM.PDOC ---
ED HPI GENERAL MEDICAL PROBLEM - General Chief Complaint: Allergic Reaction Stated Complaint: EMS ARRIVAL Time Seen by Provider: 12/27/19 21:33 Source of Information: Reports: Patient, EMS - History of Present Illness INITIAL COMMENTS - FREE TEXT/NARRATIVE: The patient is a 34-year-old female who presents to the ER via EMS secondary to the concern for an allergic reaction. The patient states that she was eating dinner and her sinuses have been hurting her and they were starting to plug up when she got up to go to the sink to take her Zicam and nasal sprays. Then, the patient started to get nauseated and lightheaded as her headache got worse, she then continued to feel like she was going to pass out and she thought that she was having some trouble breathing. The patient then started vomiting everywhere, and during these episodes of vomiting she felt like her breathing was getting worse and she did not know what to do so she had her boyfriend get her daughter's EpiPen and injected into her right thigh. EMS was then called. EMS states that there is emesis everywhere in the kitchen. Currently, the patient is not nauseated at this moment and she does not feel short of breath she is just feels really shaky. left knee Pain Score (Numeric/FACES): 2 - Related Data Allergies Allergy/AdvReac Type Severity Reaction Status Date / Time No Known Allergies Allergy Verified 12/27/19 21:35 Home Meds: Home Meds lamoTRIgine [Lamotrigine ER] 200 mg PO DAILY 12/08/15 [History] Cetirizine HCl [Zyrtec] 1 tab PO ASDIRECTED PRN 06/12/16 [History] FLUoxetine [PROzac] 40 mg PO DAILY 11/22/19 [History] OXcarbazepine [Trileptal] 225 mg PO BID 12/27/19 [History] Past Medical History - Past Health History Medical/Surgical History: Denies Medical/Surgical History HEENT History: Reports: Allergic Rhinitis, Other (See Below) Other HEENT History: wears glasses Cardiovascular History: Reports: None Respiratory History: Reports: None Gastrointestinal History: Reports: None Genitourinary History: Reports: UTI, Recurrent 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: Musculoskeletal History: Reports: Fracture Neurological History: Reports: None Psychiatric History: Reports: Bipolar, Depression Endocrine/Metabolic History: Reports: None Hematologic History: Reports: None Immunologic History: Reports: None Oncologic (Cancer) History: Reports: None Dermatologic History: Reports: None - Infectious Disease History Infectious Disease History: Reports: None - Past Surgical History Head Surgeries/Procedures: Reports: None HEENT Surgical History: Reports: Adenoidectomy, Myringotomy w Tube(s), Tonsillectomy Cardiovascular Surgical History: Reports: None Respiratory Surgical History: Reports: None GI Surgical History: Reports: Colonoscopy Female Surgical History: Reports: Section, LEEP, Tubal Ligation Other Female Surgeries/Procedures: x4 Endocrine Surgical History: Reports: None Neurological Surgical History: Reports: None Other Musculoskeletal Surgeries/Procedures:: hx ORIF of left fx tib fib Dermatological Surgical History: Reports: None Social & Family History - Family History Family Medical History: Noncontributory - Caffeine Use Caffeine Use: Reports: Energy Drinks ED ROS GENERAL - Review of Systems Review Of Systems: See Below (Positive for headache, positive for nausea and vomiting, positive for shortness of breath, negative for fevers, negative for chills, insert review of systems) ED EXAM, GENERAL - Physical Exam Exam: See Below Free Text/Narrative:: Constitutional: No acute distress, Non-toxic appearance, shivering, deconditioned HEENT.: Normocephalic, Atraumatic, PERRL, EOMI, External ears are atraumatic, nares are patent without epistaxis Neck: Normal range of motion, Trachea Midline, No stridor Respiratory.: No respiratory distress, No tachypnea, Lungs Clear to Auscultation bilaterally without wheezes, rales, or rhonchi, no dyspneic speech Cardiovascular.: Mildly tachycardic rate and Rhythm without murmurs, rubs, or gallops, good peripheral perfusion GI: Soft and nontender, obese Genital Urinary: Deferred Musculoskeletal: Good range of motion. All 4 extremities present and atraumatic , no edema Back: Full Range of Motion Skin: Warm, Dry, Color is ethnicity appropriate, No acute rash. Lymphatic: No lymphadenopathy noted Neurological: Alert, Awake and oriented x 3, No focal deficits noted appreciate , GCS 15 Psych: Affect, Judgement, mood normal Course - Vital Signs Text/Narrative:: Given the entire history and exam my initial impression is not that the patient developed an allergic reaction, it sounds like she was developing a vagal episode and during the nausea and vomiting, unfortunately as many people do, she felt like she could not breathe and panicked. The patient is also had headaches before and this is nothing unusual so I do not feel that the patient needs to be worked up for a subarachnoid hemorrhage, intracranial hemorrhage, brain mass, etc. The patient was watched in the ER for an hour and her stay here was unremarkable. If I felt that this was an actual true allergic reaction, anaphylaxis, etc. the patient will be observed for a minimum of 4 to 6 hours plus the patient would receive steroids. However, given the entire clinical scenario no lab work, imaging, medications, or anything was ordered or prescribed. Stable for discharge. Last Recorded V/S: Last Vital Signs Temp 36.5 C 12/27/19 21:31 Pulse 90 12/27/19 21:57 Resp 16 12/27/19 21:31 BP 124/77 12/27/19 21:57 Pulse Ox 96 12/27/19 21:57 Departure - Departure Time of Disposition: 22:28 Disposition: Home, Self-Care 01 Condition: Good Clinical Impression: Vomiting - Discharge Information Instructions: Nausea and Vomiting, Adult, [id number] Sepsis Event Note - Focused Exam Vital Signs: Vital Signs Temp Pulse Resp BP Pulse Ox 12/27/19 21:57 90 124/77 96 12/27/19 21:44 87 94 L 12/27/19 21:31 36.5 C 93 16 131/82 99 Date Exam was Performed: 12/27/19 Time Exam was Performed: 22:26
[2019-12-27 22:33] VITALS: BP 116/54; PULSE 81
== END 2019-12-27 22:42 | disposition home or self-care (01) ==
LOC: MW.ED 21:26
DX: R11.2 Nausea with vomiting, unspecified (principal); F31.9 Bipolar disorder, unspecified; E66.9 Obesity, unspecified; Z68.31 Body mass index [BMI] 31.0-31.9, adult; Z79.899 Other long term (current) drug therapy
CPT/HCPCS: 99283; 99284

== ENCOUNTER 2020-03-10 06:31 | Day surgery (SDC) | payer BC ==
[2020-03-09 09:42] LABS: BLOOD UREA NITROGEN,BUN 12 mg/dL (7.0-18.0); CARBON DIOXIDE,CO2 23.8 mmol/L (21.0-32.0); CHLORIDE,CL 104 mmol/L (98-107); GLUCOSE RANDOM 90 mg/dL (74-106); SODIUM,NA 137 mmol/L (136-145)
[~2020-03-10 06:31] MED LIST changes: -Lactated Ringers 1,000 ML IV SCH; +Sodium Chloride 0.9% 10 ML SDV IV PRN; +Sodium Chloride 0.9% 10 ML Syringe FLUSH PRN; +Sodium Chloride 0.9% 2.5 ML Syringe FLUSH PRN; +cefOXitin 2 GM in Premix Bag 1 BAG IV ONE
[2020-03-10] MEDS ORDERED: Propofol 200 MG/20 ML SDV ONE (07:07)
[2020-03-10] MEDS ORDERED: fentaNYL 250 MCG/5 ML SDV ONE (07:07)
[2020-03-10] MEDS ORDERED: Midazolam 1 MG/ML 2 ML SDV ONE (07:07)
[2020-03-10] MEDS ORDERED: Lidocaine 2% 5 ML SDV ONE (07:09)
[2020-03-10] MEDS ORDERED: Glycopyrrolate 0.2 MG/ML SDV ONE ×2 (07:09→09:46)
[2020-03-10] MEDS ORDERED: Ondansetron 4 MG/2 ML SDV ONE (07:09)
[2020-03-10] MEDS ORDERED: Fluorescein 5 ML Vial ONE (07:31)
[2020-03-10] MEDS ORDERED: Albuterol/Ipratropium 3.0-0.5 MG/3 ML Neb Soln NEB ONE (07:37)
[2020-03-10] MEDS ORDERED: Scopolamine 1.5 MG Transdermal Patch TRDERM PRN (07:41)
[2020-03-10] MEDS: Lactated Ringers 1,000 ML IV SCH ×2 (07:41→12:58)
[2020-03-10] MEDS ORDERED: Albuterol/Ipratropium 3.0-0.5 MG/3 ML Neb Soln ONE (07:41)
--- NOTE | 2020-03-10 07:46 | PCM.PREANE ---
Preanesthetic Assessment - Anesthesia/Transfusion/Family Hx Anesthesia History: Prior Anesthesia Without Reaction Other Type of Anesthesia Reaction Comment: "I am sensitive to anesthesia, I dont need much" Family History of Anesthesia Reaction: No Transfusion History: No Prior Transfusion(s) Intubation History: Unknown - Review of Systems General: No Symptoms Pulmonary: No Symptoms Cardiovascular: No Symptoms Gastrointestinal: No Symptoms Neurological: No Symptoms Other: Reports: None - Physical Assessment Vital Signs: Last Vital Signs Temp 36.8 C 03/10/20 07:05 Pulse 85 03/10/20 07:05 Resp 16 03/10/20 07:05 BP 132/84 03/10/20 07:05 Pulse Ox 93 L 03/10/20 07:05 Height: 5 ft 7 in Weight: 102.058 kg ASA Class: 2 Mental Status: Alert & Oriented x3 Airway Class: Mallampati = 2 Dentition: Reports: Normal Dentition Thyro-Mental Finger Breadths: 3 Mouth Opening Finger Breadths: 2 ROM/Head Extension: Full Lungs: Clear to Auscultation, Normal Respiratory Effort, Rhonchi (rt. lower lobe) Cardiovascular: Regular Rate, Regular Rhythm - Lab Values: Laboratory Last Values WBC 9.33 K/uL (4.0-11.0) 03/09/20 09:07 RBC 4.75 M/uL (4.30-5.90) 03/09/20 09:07 Hgb 13.1 g/dL (12.0-16.0) 03/09/20 09:07 Hct 40.4 % (36.0-46.0) 03/09/20 09:07 MCV 85.1 fL (80.0-98.0) 03/09/20 09:07 MCH 27.6 pg (27.0-32.0) 03/09/20 09:07 MCHC 32.4 g/dL (31.0-37.0) 03/09/20 09:07 RDW Std Deviation 44.8 fl (28.0-62.0) 03/09/20 09:07 RDW Coeff of Ric 14 % (11.0-15.0) 03/09/20 09:07 Plt Count 252 K/uL (150-400) 03/09/20 09:07 MPV 9.50 fL (7.40-12.00) 03/09/20 09:07 Nucleated RBC % 0.0 /100WBC 03/09/20 09:07 Nucleated RBCs # 0 K/uL 03/09/20 09:07 Sodium 137 mmol/L (136-145) 03/09/20 09:07 Potassium 4.0 mmol/L (3.5-5.1) 03/09/20 09:07 Chloride 104 mmol/L (98-107) 03/09/20 09:07 Carbon Dioxide 23.8 mmol/L (21.0-32.0) 03/09/20 09:07 BUN 12 mg/dL (7.0-18.0) 03/09/20 09:07 Creatinine 0.7 mg/dL (0.6-1.0) 03/09/20 09:07 Est Cr Clr Drug Dosing 110.12 mL/min 03/09/20 09:07 Estimated GFR (MDRD) > 60.0 ml/min 03/09/20 09:07 Glucose 90 mg/dL (74-106) 03/09/20 09:07 Calcium 8.2 mg/dL (8.5-10.1) L 03/09/20 09:07 HCG, Qual NEGATIVE (NEG) 03/09/20 09:07 Blood Type AB POSITIVE 03/09/20 09:07 Antibody Screen NEGATIVE 03/09/20 09:07 - Allergies Allergies/Adverse Reactions: Allergies Allergy/AdvReac Type Severity Reaction Status Date / Time No Known Allergies Allergy Verified 03/10/20 07:38 - Blood Blood Available: No - Anesthesia Plan Pre-Op Medication Ordered: None - Acknowledgements Anesthesia Type Planned: General Anesthesia Pt an Appropriate Candidate for the Planned Anesthesia: Yes Alternatives and Risks of Anesthesia Discussed w Pt/Guardian: Yes Pt/Guardian Understands and Agrees with Anesthesia Plan: Yes PreAnesthesia Questionnaire - Past Health History Medical/Surgical History: Denies Medical/Surgical History HEENT History: Reports: Allergic Rhinitis, Other (See Below) Other HEENT History: wears glasses Cardiovascular History: Reports: None, Other (See Below) (h/o palpitations while drinking energy drinks) Respiratory History: Reports: Asthma (mild) Gastrointestinal History: Reports: GERD, Hiatal Hernia, Irritable Bowel Syndrome Genitourinary History: Reports: None 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: Musculoskeletal History: Reports: Fracture Neurological History: Reports: None Psychiatric History: Reports: ADHD, Anxiety, Bipolar, Depression Endocrine/Metabolic History: Reports: Obesity/BMI 30+ (BMI 35.2) Hematologic History: Reports: None Immunologic History: Reports: Other (See Below) Other Immunologic History: hx MRSA "years ago" Oncologic (Cancer) History: Reports: None Dermatologic History: Reports: None - Infectious Disease History Infectious Disease History: Reports: None - Past Surgical History Head Surgeries/Procedures: Reports: None HEENT Surgical History: Reports: Adenoidectomy, Myringotomy w Tube(s), Tonsillectomy, Other (See Below) (tympanoplasty) Other HEENT Surgeries/Procedures: right ear surgery, Cardiovascular Surgical History: Reports: None Respiratory Surgical History: Reports: None GI Surgical History: Reports: Colonoscopy Female Surgical History: Reports: Section, LEEP, Tubal Ligation Other Female Surgeries/Procedures: x4 Endocrine Surgical History: Reports: None Neurological Surgical History: Reports: None Musculoskeletal Surgical History: Reports: ORIF Other Musculoskeletal Surgeries/Procedures:: hx ORIF of left fx tib fib Oncologic Surgical History: Reports: None Dermatological Surgical History: Reports: None - SUBSTANCE USE Smoking Status *Q: Current Every Day Smoker (1 ppd (on chantix)) Tobacco Use Within Last Twelve Months: Cigarettes - HOME MEDS Home Medications: Home Meds lamoTRIgine [Lamotrigine ER] 200 mg PO DAILY 12/08/15 [History] OXcarbazepine [Trileptal] 150 mg PO BID 12/27/19 [History] DULoxetine HCl [Cymbalta] 60 mg PO DAILY 03/04/20 [History] Fluticasone Propionate [Flonase Allergy Relief] 2 spray NASBOTH BID 03/04/20 [History] Multivit #34/FA/Nadh/Ubiquinon [Xyzbac Tablet] 1 tab PO DAILY 03/04/20 [History] Omeprazole 20 mg PO DAILY 03/04/20 [History] - CURRENT (IN HOUSE) MEDS Current Meds: Current Medications Lactated Ringer's (Ringers, Lactated) 1,000 mls @ 125 mls/hr IV ASDIRECTED NATACHA Last Admin: 03/10/20 07:41 Dose: 125 mls/hr Documented by: Scopolamine (Transderm-Scop) 1.5 mg TRDERM Q72H PRN PRN Reason: Nausea Sodium Chloride (Saline Flush) 10 ml FLUSH ASDIRECTED PRN PRN Reason: Keep Vein Open Sodium Chloride (Saline Flush) 2.5 ml FLUSH ASDIRECTED PRN PRN Reason: Keep Vein Open Sodium Chloride (Normal Saline) 10 ml IV ASDIRECTED PRN PRN Reason: IV Use Discontinued Medications Albuterol/Ipratropium (Duoneb 3.0-0.5 Mg/3 Ml) 3 ml NEB ONETIME ONE Stop: 03/10/20 07:38 Fentanyl (Sublimaze) Confirm Administered Dose 250 mcg .ROUTE .STK-MED ONE Stop: 03/10/20 07:08 Fluorescein Sodium (Ak-Fluor) Confirm Administered Dose 5 ml .ROUTE .STK-MED ONE Stop: 03/10/20 07:32 Glycopyrrolate (Robinul) Confirm Administered Dose 0.2 mg .ROUTE .STK-MED ONE Stop: 03/10/20 07:10 Cefoxitin Sodium 2 gm/ Premix 50 mls @ 100 mls/hr IV ONETIME ONE Stop: 03/09/20 08:51 Lidocaine (Xylocaine-Mpf 2%) Confirm Administered Dose 5 ml .ROUTE .STK-MED ONE Stop: 03/10/20 07:10 Midazolam HCl (Versed 1 Mg/Ml) Confirm Administered Dose 2 mg .ROUTE .STK-MED ONE Stop: 03/10/20 07:08 Ondansetron HCl (Zofran) Confirm Administered Dose 4 mg .ROUTE .STK-MED ONE Stop: 03/10/20 07:10 Propofol (Diprivan 20 Ml) Confirm Administered Dose 200 mg .ROUTE .STK-MED ONE Stop: 03/10/20 07:08
[2020-03-10] MEDS ORDERED: Scopolamine 1.5 MG Transdermal Patch ONE (07:47)
[2020-03-10] MEDS ORDERED: Succinylcholine/Sod PF 100 MG/5 ML SYRINGE IV ONE (08:02)
[2020-03-10] MEDS ORDERED: Rocuronium Bromide 50 MG/5 ML Syringe ONE (08:12)
[2020-03-10] MEDS ORDERED: Furosemide 40 MG/4 ML VIAL ONE (08:35)
[2020-03-10] MEDS ORDERED: Sodium Chloride 0.9% 20 ML ONE (08:49)
[2020-03-10] MEDS ORDERED: ePHEDrine 50 MG/ML SDV ONE (08:49)
[2020-03-10] MEDS ORDERED: cefOXitin 1 GM Vial ONE (08:50)
[2020-03-10] MEDS ORDERED: ceFAZolin/Dextrose,Iso-Osmotic 2 GM/50 ML Duplex Bag IV ONE (08:50)
[2020-03-10] MEDS ORDERED: EPINEPHrine 1:10,000 1 MG/10 ML Syringe IVPUSH PRN (08:53)
[2020-03-10] MEDS ORDERED: 50% Dextrose in Water 50 ML Syringe IVPUSH PRN (08:53)
[2020-03-10] MEDS ORDERED: Atropine 0.1 MG/ML 10 ML Syringe IVPUSH PRN ×2 (08:53)
[2020-03-10] MEDS ORDERED: Naloxone 0.4 MG/ML Syringe IVPUSH PRN (08:53)
[2020-03-10] MEDS ORDERED: Albuterol 0.083% 2.5 MG/3 ML Neb Soln NEB PRN (08:53)
[2020-03-10] MEDS ORDERED: HYDROmorphone 2 MG/ML Syringe ONE (09:28)
[2020-03-10] MEDS ORDERED: Octyl 2-Cyanoacrylate 1 Tube ONE (09:51)
[2020-03-10] MEDS ORDERED: Ketorolac 30 MG/ML SDV IVPUSH PRN (10:03)
[2020-03-10] MEDS ORDERED: Acetaminophen/oxyCODONE 325-5 MG Tab PO PRN (10:03)
[2020-03-10] MEDS ORDERED: Ketorolac 30 MG/ML SDV IVPUSH ONE (10:03)
[2020-03-10] MEDS ORDERED: Promethazine 25 MG/ML SDV IM PRN (10:03)
[2020-03-10] MEDS ORDERED: Ondansetron 4 MG/2 ML SDV IVPUSH PRN (10:03)
[2020-03-10] MEDS ORDERED: Morphine 4 MG/ML Syringe IVPUSH PRN (10:03)
--- NOTE | 2020-03-10 10:07 | PCM.OPNOTE ---
- General Post-Op/Procedure Note Date of Surgery/Procedure: 03/10/20 Operative Procedure(s): TLH, cysto. Post-Op Diagnosis: Same Anesthesia Technique: General ET Tube Primary Surgeon: Db Grajeda EBL in mLs: 100 Complications: None Condition: Good
[2020-03-10] MEDS: fentaNYL 100 MCG/2 ML SDV IVPUSH PRN ×4 (10:28→11:12)
[2020-03-10] MEDS ORDERED: Midazolam 1 MG/ML 2 ML SDV IVPUSH ONE (10:39)
[2020-03-10] MEDS ORDERED: Promethazine 25 MG/ML SDV IM ONE (10:41)
--- NOTE | 2020-03-10 11:28 | PCM.POSTAN ---
POST ANESTHESIA ASSESSMENT - MENTAL STATUS Mental Status: Alert, Oriented - VITAL SIGNS Vital Signs: Last Vital Signs Temp 36.8 C 03/10/20 10:03 Pulse 84 03/10/20 11:20 Resp 12 03/10/20 11:20 BP 94/61 03/10/20 11:20 Pulse Ox 94 L 03/10/20 11:20 - RESPIRATORY Respiratory Status: Respiratory Rate WNL, Airway Patent, O2 Saturation Stable - CARDIOVASCULAR CV Status: Pulse Rate WNL, Blood Pressure Stable - GASTROINTESTINAL GI Status: No Symptoms - PAIN Pain Score: 5 - POST OP HYDRATION Hydration Status: Adequate & Stable - OBSERVATIONS Free Text/Narrative:: No anesthesia problems
--- NOTE | 2020-03-10 14:59 | OR ---
SURGEON: Db Grajeda MD DATE OF PROCEDURE: 03/10/2020 PREOPERATIVE DIAGNOSES: Menometrorrhagia, pelvic pain. POSTOPERATIVE DIAGNOSES: Menometrorrhagia, pelvic pain. OPERATION PERFORMED: Total laparoscopic hysterectomy, laparoscopic bilateral salpingectomy, preserving both ovaries and cystoscopy. 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 ANESTHESIA: General with endotracheal intubation. ESTIMATED BLOOD LOSS: Less than 100 mL. COMPLICATIONS: None. FINDINGS: Uterus is about 11 to 12 weeks size. Minimal adhesion from her previous 4 sections. INDICATIONS FOR SURGERY: [facility] referred to the admit note. PROCEDURE IN DETAIL: The patient was brought to the OR, properly identified, and after adequate level of anesthesia, the patient placed in lithotomy position with an access to the abdomen and the vagina. The patient was prepped and draped in sterile fashion as usual. The Vizcaino catheter was placed in the bladder and the colpotomizer vaginal manipulator placed in the uterus for manipulation. The operation shifted abdominally. A stab wound done beneath the umbilicus. The Veress needle was placed in the abdomen and the abdomen inflated with 3.5 L of carbon dioxide. The skin incision was enlarged to accommodate the trocar, and then utilizing the Visiport technique, the abdomen was entered. Once we were in the abdomen and it was safely entered, a 10/12 trocar was placed in the left iliac fossa and 5 mm trocar was placed in the right iliac fossa under direct vision. The operation was started by inspection of the pelvis and inspection of the pedicle and making sure no impediment to do the procedure, and then we started using the Musa Harmonic scalpel the superior pedicle coagulated, transected. The tubes included with the specimen on both sides and then the round ligament coagulated, transected on both sides, and then the anterior leaf of the broad ligament dissected downward medially. The bladder was dissected meticulously with sharp and blunt dissection and dissected completely away from the cervix and the lower uterine segment. Then, skeletonization of the uterine vessel at the level of the manipulator, and using the Musa Harmonic scalpel, the uterine vessel coagulated, transected at this level. Once we had done that, then the vagina was entered using the Musa Harmonic scalpel in a circular manner at the tip of the manipulator detaching the cervix from its attachment to the vagina. The cervix and the specimen removed vaginally and then pneumoperitoneum re- established by placing vaginal pack in the vagina. Thorough irrigation of the pelvis showed no oozing, no bleeding. We proceeded to close the vaginal cuff laparoscopically using 2-0 PDS, and while we were doing that, we asked Anesthesia to give the patient fluorescein. After closing the vaginal cuff and inspection of the pelvic sidewall, it showed the ureter was seen clearly peristalsed without any problem. Once we finished with the procedure and the abdomen was deflated, Vizcaino catheter was removed, cystoscopy was performed, the bladder was intact. Both ureteric orifices were seen with the dye coming from both of them. Thus, the patency of both ureters verified. Satisfied with these findings, the procedure ended after closing the laparoscopic incision in layers. The instrument and sponge count were correct. The patient tolerated the procedure well, went to recovery room in a stable general condition. MONTEZ / OMA /[id number]
[2020-03-10] MEDS: Acetaminophen/oxyCODONE 325-5 MG Tab PO PRN ×2 (16:07→20:56)
[2020-03-11] MEDS: Acetaminophen/oxyCODONE 325-5 MG Tab PO PRN ×2 (00:16→04:02)
[2020-03-11 06:39] LABS: BLOOD UREA NITROGEN,BUN 13 mg/dL (7.0-18.0); CARBON DIOXIDE,CO2 29.4 mmol/L (21.0-32.0); CHLORIDE,CL 105 mmol/L (98-107); GLUCOSE RANDOM 100 mg/dL (74-106); POTASSIUM,K 4.4 mmol/L (3.5-5.1); SODIUM,NA 141 mmol/L (136-145)
--- NOTE | 2020-03-11 07:40 | PCM48HPAN ---
Post Anesthesia Note - EVALUATION WITHIN 48HRS OF ANESTHETIC Vital Signs in Normal Range: Yes Patient Participated in Evaluation: Yes Respiratory Function Stable: Yes Airway Patent: Yes Cardiovascular Function Stable: Yes Hydration Status Stable: Yes Pain Control Satisfactory: Yes (Using analgesics) Nausea and Vomiting Control Satisfactory: Yes Mental Status Recovered: Yes Vital Signs: Last Vital Signs Temp 36.9 C 03/11/20 04:09 Pulse 66 03/11/20 04:09 Resp 14 03/11/20 04:09 BP 103/56 L 03/11/20 04:09 Pulse Ox 95 03/11/20 04:09 - COMMENTS/OBSERVATIONS Free Text/Narrative:: Progressing well.
[2020-03-11 08:04] VITALS: BP 115/73; PULSE 75
--- NOTE | 2020-03-11 08:52 | PCM.SURGPN ---
- General Info Date of Service: 03/11/20 POD#: 1 Functional Status: Reports: Pain Controlled - Review of Systems General: Reports: No Symptoms HEENT: Reports: No Symptoms Pulmonary: Reports: No Symptoms Cardiovascular: Reports: No Symptoms Gastrointestinal: Reports: No Symptoms Genitourinary: Reports: No Symptoms Musculoskeletal: Reports: No Symptoms Skin: Reports: No Symptoms Neurological: Reports: No Symptoms Psychiatric: Reports: No Symptoms - Patient Data Vitals - Most Recent: Last Vital Signs Temp 36.8 C 03/11/20 08:00 Pulse 75 03/11/20 08:00 Resp 18 03/11/20 08:00 BP 115/73 03/11/20 08:00 Pulse Ox 98 03/11/20 08:00 Weight - Most Recent: 102.058 kg I&O - Last 24 Hours: Intake & Output 03/10/20 03/11/20 03/11/20 22:59 06:59 14:59 Output Total 5168 3211 867 Balance -5615 -0261 -438 Lab Results Last 24 Hrs: Laboratory Results - last 24 hr 03/11/20 03/11/20 Range/Units 06:08 06:08 WBC 14.22 H (4.0-11.0) K/uL RBC 3.97 L (4.30-5.90) M/uL Hgb 10.9 L (12.0-16.0) g/dL Hct 33.9 L (36.0-46.0) % MCV 85.4 (80.0-98.0) fL MCH 27.5 (27.0-32.0) pg MCHC 32.2 (31.0-37.0) g/dL RDW Std Deviation 45.3 (28.0-62.0) fl RDW Coeff of Ric 15 (11.0-15.0) % Plt Count 234 (150-400) K/uL MPV 9.50 (7.40-12.00) fL Neut % (Auto) 74.1 (48.0-80.0) % Lymph % (Auto) 18.6 (16.0-40.0) % Buchanan % (Auto) 6.8 (0.0-15.0) % Eos % (Auto) 0.4 (0.0-7.0) % Baso % (Auto) 0.1 (0.0-1.5) % Neut # (Auto) 10.5 H (1.4-5.7) K/uL Lymph # (Auto) 2.7 H (0.6-2.4) K/uL Buchanan # (Auto) 1.0 H (0.0-0.8) K/uL Eos # (Auto) 0.1 (0.0-0.7) K/uL Baso # (Auto) 0.0 (0.0-0.1) K/uL Nucleated RBC % 0.0 /100WBC Nucleated RBCs # 0 K/uL Sodium 141 (136-145) mmol/L Potassium 4.4 (3.5-5.1) mmol/L Chloride 105 (98-107) mmol/L Carbon Dioxide 29.4 (21.0-32.0) mmol/L BUN 13 (7.0-18.0) mg/dL Creatinine 0.8 (0.6-1.0) mg/dL Est Cr Clr Drug Dosing 96.36 mL/min Estimated GFR (MDRD) > 60.0 ml/min Glucose 100 (74-106) mg/dL Calcium 8.3 L (8.5-10.1) mg/dL Med Orders - Current: Current Medications Lactated Ringer's (Ringers, Lactated) 1,000 mls @ 125 mls/hr IV ASDIRECTED [facility] Last Admin: 03/10/20 12:58 Dose: 125 mls/hr Documented by: Ketorolac Tromethamine (Toradol) 30 mg IVPUSH Q6H PRN PRN Reason: Pain (severe 7-10) Stop: 03/15/20 10:03 Morphine Sulfate (Morphine) 4 mg IVPUSH Q2H PRN PRN Reason: Pain (severe 7-10) Last Admin: 03/10/20 13:09 Dose: 4 mg Documented by: Ondansetron HCl (Zofran) 4 mg IVPUSH Q6H PRN PRN Reason: Nausea/Vomiting Oxycodone/Acetaminophen (Percocet 325-5 Mg) 1 tab PO Q4H PRN PRN Reason: Pain (moderate 4-6) Oxycodone/Acetaminophen (Percocet 325-5 Mg) 2 tab PO Q4H PRN PRN Reason: Pain (moderate 4-6) Last Admin: 03/11/20 04:02 Dose: 2 tab Documented by: Promethazine HCl (Phenergan) 25 mg IM Q6H PRN PRN Reason: Nausea/Vomiting Scopolamine (Transderm-Scop) 1.5 mg TRDERM Q72H PRN PRN Reason: Nausea Last Admin: 03/10/20 07:50 Dose: 1.5 mg Documented by: Sodium Chloride (Saline Flush) 10 ml FLUSH ASDIRECTED PRN PRN Reason: Keep Vein Open Sodium Chloride (Saline Flush) 2.5 ml FLUSH ASDIRECTED PRN PRN Reason: Keep Vein Open Sodium Chloride (Normal Saline) 10 ml IV ASDIRECTED PRN PRN Reason: IV Use Discontinued Medications Albuterol (Proventil Neb Soln) 2.5 mg NEB ONETIME PRN PRN Reason: Wheezing Albuterol/Ipratropium (Duoneb 3.0-0.5 Mg/3 Ml) 3 ml NEB ONETIME ONE Stop: 03/10/20 07:38 Last Admin: 03/10/20 07:42 Dose: 3 ml Documented by: Albuterol/Ipratropium (Duoneb 3.0-0.5 Mg/3 Ml) Confirm Administered Dose 3 ml .ROUTE .STK-MED ONE Stop: 03/10/20 07:42 Atropine Sulfate (Atropine 0.1 Mg/Ml) 0.5 mg IVPUSH ASDIRECTED PRN PRN Reason: Hypo-perfusion Atropine Sulfate (Atropine 0.1 Mg/Ml) 1 mg IVPUSH ASDIRECTED PRN PRN Reason: Hypo-Perfusion Cefazolin Sodium/Dextrose (Ancef) Confirm Administered Dose 2 gm IV .STK-MED ONE Stop: 03/10/20 08:51 Cefoxitin Sodium (Mefoxin) Confirm Administered Dose 2 gm .ROUTE .STK-MED ONE Stop: 03/10/20 08:51 Dextrose/Water (Dextrose 50% In Water) 50 ml IVPUSH ASDIRECTED PRN PRN Reason: Hypoglycemia Ephedrine Sulfate (Ephedrine Sulfate) Confirm Administered Dose 50 mg .ROUTE .STK-MED ONE Stop: 03/10/20 08:50 Epinephrine HCl (Epinephrine 1:10,000) 1 mg IVPUSH ASDIRECTED PRN PRN Reason: ACLS Guidelines Fentanyl (Sublimaze) Confirm Administered Dose 250 mcg .ROUTE .STK-MED ONE Stop: 03/10/20 07:08 Fentanyl (Sublimaze) 50 - 100 mcg IVPUSH Q5M PRN PRN Reason: Pain Last Admin: 03/10/20 11:12 Dose: 50 mcg Documented by: Fluorescein Sodium (Ak-Fluor) Confirm Administered Dose 5 ml .ROUTE .STK-MED ONE Stop: 03/10/20 07:32 Furosemide (Lasix) Confirm Administered Dose 40 mg .ROUTE .STK-MED ONE Stop: 03/10/20 08:36 Glycopyrrolate (Robinul) Confirm Administered Dose 0.2 mg .ROUTE .STK-MED ONE Stop: 03/10/20 07:10 Glycopyrrolate (Robinul) Confirm Administered Dose 0.4 mg .ROUTE .STK-MED ONE Stop: 03/10/20 09:47 Hydromorphone HCl (Dilaudid) Confirm Administered Dose 2 mg .ROUTE .STK-MED ONE Stop: 03/10/20 09:29 Cefoxitin Sodium 2 gm/ Premix 50 mls @ 100 mls/hr IV ONETIME ONE Stop: 03/09/20 08:51 Sodium Chloride (Normal Saline) Confirm Administered Dose 20 mls @ as directed .ROUTE .STK-MED ONE Stop: 03/10/20 08:50 Ketorolac Tromethamine (Toradol) 30 mg IVPUSH ONETIME ONE Stop: 03/10/20 10:04 Last Admin: 03/10/20 10:24 Dose: 30 mg Documented by: Lidocaine (Xylocaine-Mpf 2%) Confirm Administered Dose 5 ml .ROUTE .STK-MED ONE Stop: 03/10/20 07:10 Midazolam HCl (Versed 1 Mg/Ml) Confirm Administered Dose 2 mg .ROUTE .STK-MED ONE Stop: 03/10/20 07:08 Midazolam HCl (Versed 1 Mg/Ml) 2 mg IVPUSH ONETIME ONE Stop: 03/10/20 10:40 Last Admin: 03/10/20 10:37 Dose: 2 mg Documented by: Naloxone HCl (Narcan) 0.1 mg IVPUSH ASDIRECTED PRN PRN Reason: Respiratory Depression Octyl Cyanoacrylate (Dermabond Advance) Confirm Administered Dose 1 applic .ROUTE .STK-MED ONE Stop: 03/10/20 09:52 Ondansetron HCl (Zofran) Confirm Administered Dose 4 mg .ROUTE .STK-MED ONE Stop: 03/10/20 07:10 Promethazine HCl (Phenergan) 25 mg IM ONETIME ONE Stop: 03/10/20 10:42 Last Admin: 03/10/20 10:51 Dose: 25 mg Documented by: Propofol (Diprivan 20 Ml) Confirm Administered Dose 200 mg .ROUTE .STK-MED ONE Stop: 03/10/20 07:08 Rocuronium Zaleski (Rocuronium Zaleski) Confirm Administered Dose 50 mg .ROUTE .STK-MED ONE Stop: 03/10/20 08:13 Scopolamine (Transderm-Scop) Confirm Administered Dose 1.5 mg .ROUTE .STK-MED ONE Stop: 03/10/20 07:48 Vecuronium Zaleski (Vecuronium) Confirm Administered Dose 10 mg .ROUTE .STK-MED ONE Stop: 03/10/20 09:13 - Exam Wound/Incisions: Healing Well General: Alert, Oriented HEENT: Pupils Equal Neck: Supple Lungs: Clear to Auscultation, Normal Respiratory Effort Cardiovascular: Regular Rate, Regular Rhythm GI/Abdominal Exam: Normal Bowel Sounds, Soft, Non-Tender, No Organomegaly, No Distention, No Abnormal Bruit, No Mass, Pelvis Stable Extremities: Normal Inspection, Normal Range of Motion, Non-Tender, No Pedal Edema, Normal Capillary Refill Skin: Warm, Dry, Intact Neurological: No New Focal Deficit Psy/Mental Status: Alert, Normal Affect, Normal Mood Sepsis Event Note - Evaluation Sepsis Screening Result: No Definite Risk - Focused Exam Vital Signs: Vital Signs Temp Pulse Resp BP Pulse Ox 03/11/20 08:00 36.8 C 75 18 115/73 98 03/11/20 04:09 36.9 C 66 14 103/56 L 95 Date Exam was Performed: 03/11/20 Time Exam was Performed: 08:50 - Problem List Review Problem List Initiated/Reviewed/Updated: Yes - My Orders Last 24 Hours: Active Orders 24 hr Category Date Time Status Patient Status [ADT] Routine ADT 03/10/20 10:03 Active Antiembolic Devices [RC] PER UNIT ROUTINE Care 03/10/20 10:03 Active Blood Glucose Check, Bedside [RC] PRN Care 03/10/20 08:53 Active Notify Provider Vital Signs [RC] ASDIRECTED Care 03/10/20 08:53 Active Notify Provider Vital Signs [RC] ASDIRECTED Care 03/10/20 10:03 Active Oxygen Therapy [RC] ASDIRECTED Care 03/10/20 10:03 Active RT Incentive Spirometry [RC] Q2HWA Care 03/10/20 10:03 Active Up With Assistance [RC] PER UNIT ROUTINE Care 03/10/20 10:03 Active Up ad Tangela [RC] PER UNIT ROUTINE Care 03/10/20 10:03 Active Vital Signs [RC] PER UNIT ROUTINE Care 03/10/20 10:03 Active Regular Diet [DIET] Diet 03/10/20 Lunch Active Acetaminophen/oxyCODONE [Percocet 325-5 MG] Med 03/10/20 10:03 Active 1 tab PO Q4H PRN Acetaminophen/oxyCODONE [Percocet 325-5 MG] Med 03/10/20 10:03 Active 2 tab PO Q4H PRN Ketorolac [Toradol] Med 03/10/20 10:03 Active 30 mg IVPUSH Q6H PRN Morphine Med 03/10/20 10:03 Active 4 mg IVPUSH Q2H PRN Ondansetron [Zofran] Med 03/10/20 10:03 Active 4 mg IVPUSH Q6H PRN Promethazine [Phenergan] Med 03/10/20 10:03 Active 25 mg IM Q6H PRN Peripheral IV Discontinue [OM.PC] Routine Oth 03/10/20 10:03 Ordered Sequential Compression Device [OM.PC] Per Unit Routine Oth 03/10/20 10:03 Ordered Resuscitation Status Routine Resus Stat 03/10/20 10:03 Ordered Medication Orders Lactated Ringer's (Ringers, Lactated) 1,000 mls @ 125 mls/hr IV ASDIRECTED [facility] Last Admin: 03/10/20 12:58 Dose: 125 mls/hr Documented by: [id number] Infusion: 03/10/20 12:58 Dose: 125 mls/hr Documented by: [id number] Admin: 03/10/20 07:41 Dose: 125 mls/hr Documented by: FENSGLO Ketorolac Tromethamine (Toradol) 30 mg IVPUSH Q6H PRN PRN Reason: Pain (severe 7-10) Stop: 03/15/20 10:03 Morphine Sulfate (Morphine) 4 mg IVPUSH Q2H PRN PRN Reason: Pain (severe 7-10) Last Admin: 03/10/20 13:09 Dose: 4 mg Documented by: DARRION Ondansetron HCl (Zofran) 4 mg IVPUSH Q6H PRN PRN Reason: Nausea/Vomiting Oxycodone/Acetaminophen (Percocet 325-5 Mg) 1 tab PO Q4H PRN PRN Reason: Pain (moderate 4-6) Oxycodone/Acetaminophen (Percocet 325-5 Mg) 2 tab PO Q4H PRN PRN Reason: Pain (moderate 4-6) Last Admin: 03/11/20 04:02 Dose: 2 tab Documented by: Admin: 03/11/20 00:16 Dose: 2 tab Documented by: Admin: 03/10/20 20:56 Dose: 2 tab Documented by: Admin: 03/10/20 16:07 Dose: 2 tab Documented by: DARRION Promethazine HCl (Phenergan) 25 mg IM Q6H PRN PRN Reason: Nausea/Vomiting Scopolamine (Transderm-Scop) 1.5 mg TRDERM Q72H PRN PRN Reason: Nausea Last Admin: 03/10/20 07:50 Dose: 1.5 mg Documented by: [email or web address] Sodium Chloride (Saline Flush) 10 ml FLUSH ASDIRECTED PRN PRN Reason: Keep Vein Open Sodium Chloride (Saline Flush) 2.5 ml FLUSH ASDIRECTED PRN PRN Reason: Keep Vein Open Sodium Chloride (Normal Saline) 10 ml IV ASDIRECTED PRN PRN Reason: IV Use - Assessment Assessment (Free Text/Narrative):: Status post laparoscopic hysterectomy the patient to postoperative day #1 she is doing well she is ambulatory issues on regular diet there is no vaginal blee ding had lab work is within normal limits. - Plan Plan (Free Text/Narrative):: The patient will be sent home today post hysterectomy instruction is given to the patient is no restriction on her diet prescription for Narco 5/325 for postoperative pain is given to her she is already have an appointment to see me in the office in one week
== END 2020-03-11 08:52 | disposition home or self-care (01) ==
LOC: MW.SDS 06:31 → MW.OB 10:26 → MW.SDS 03-11 08:52
PROVIDERS: ATTEND Obstetrics & Gynecology
DX: N72 Inflammatory disease of cervix uteri (principal); K66.0 Peritoneal adhesions (postprocedural) (postinfection); F41.9 Anxiety disorder, unspecified; J45.909 Unspecified asthma, uncomplicated; F31.9 Bipolar disorder, unspecified; K21.9 Gastro-esophageal reflux disease without esophagitis; E66.9 Obesity, unspecified; E78.5 Hyperlipidemia, unspecified; F17.210 Nicotine dependence, cigarettes, uncomplicated; Z68.36 Body mass index [BMI] 36.0-36.9, adult; Z79.899 Other long term (current) drug therapy; Z98.890 Other specified postprocedural states
CPT/HCPCS: 36415; 51702; 58571; 80048; 84703; 85025; 85027; 86850; 86900; 86901; A9270; J0330; J0690; J0694; J1170; J1885; J1940; J2001; J2250; J2270; J2550; J2704; J3010; J3490; J7120; 88307; J2405; J7620-GY

== ENCOUNTER 2020-08-16 11:00 | Emergency (ER) | payer OTHER, BC ==
[2020-08-16] MEDS ORDERED: Acetaminophen 500 MG Tab PO ONE (11:16)
[2020-08-16] MEDS ORDERED: fentaNYL 50 MCG/ML SDV IVPUSH ONE (11:16)
[2020-08-16] MEDS ORDERED: Lidocaine 1% with EPINEPHrine 1:100,000 10 ML MDV INJECT ONE ×2 (11:17→11:28)
[2020-08-16] MEDS ORDERED: Lidocaine 1% with EPINEPHrine 1:100,000 20 ML MDV ONE (11:19)
--- NOTE | 2020-08-16 11:27 | EDM.PDOC ---
ED HPI GENERAL MEDICAL PROBLEM - General Chief Complaint: Laceration Stated Complaint: LACERATION LEFT HAND Time Seen by Provider: 08/16/20 11:07 Source of Information: Reports: Patient, Old Records History Limitations: Reports: No Limitations - History of Present Illness INITIAL COMMENTS - FREE TEXT/NARRATIVE: This is a very pleasant 35-year-old female with a past medical history of bipolar 1 disorder presenting with a laceration to the left hand. Approximately 30 minutes ago, the patient was trying to grind down a metal chain when it slipped, causing her to sustain a laceration to the dorsal surface of the left hand. She was able to control bleeding with gauze. No report of any metal fragments or shards to suggest foreign bodies. She states her tetanus immunization is up-to-date within the last 5 years. She has no other complaints. Past medical history: Reviewed, no additional pertinent history. Surgical history: Reviewed in system, no additional pertinent history. Social history: Reviewed in system, no additional pertinent history. Family history: Reviewed in system, no additional pertinent history. PHYSICAL EXAM Vital signs reviewed. Nursing notes reviewed. Constitutional: Awake, alert, non-distressed. Head: Normocephalic, atraumatic. Eyes: EOMI, conjunctiva normal, no discharge, no scleral icterus. Ears, Nose, Throat: External ears and nose normal, moist oral mucosa. Cardiovascular: 2+ left radial pulse, capillary refill less than 2 seconds. Pulmonary: normal work of breathing, no accessory muscle use. Abdomen/GI: Soft, nontender, nondistended, no guarding or rigidity, no masses. Musculoskeletal: No deformities. Integumentary: Appropriate color for ethnicity, warm, dry, no pallor or jaundice, no rash. There is a 3 cm linear laceration over the dorsal surface of the left hand between the left second and third metacarpal bones. There appears to be some superficial burn involvement of the wound. No obvious foreign bodies. Neurologic: Alert, answering questions appropriately, normal speech, no facial droop, moving all extremities well. Sensation intact to light touch to the fingers of the left hand. Normal motor function of the fingers of the left hand. Psychiatric: Appropriate mood and affect, normal thought process. This patient was seen and evaluated during the 2019 SARS-CoV-2 novel coronavirus pandemic period. Community viral transmission is ongoing at time of this encounter and the emergency department is operating under pandemic response procedures. Left Hand Pain Score (Numeric/FACES): 7 - Related Data Allergies Allergy/AdvReac Type Severity Reaction Status Date / Time No Known Allergies Allergy Verified 08/16/20 11:15 Home Meds: Home Meds lamoTRIgine [Lamotrigine ER] 200 mg PO DAILY 12/08/15 [History] OXcarbazepine [Trileptal] 225 mg PO BID 12/27/19 [History] DULoxetine HCl [Cymbalta] 60 mg PO DAILY 03/04/20 [History] Fluticasone Propionate [Flonase Allergy Relief] 2 spray NASBOTH BID 03/04/20 [History] Multivit #34/FA/Nadh/Ubiquinon [Xyzbac Tablet] 1 tab PO DAILY 03/04/20 [History] Omeprazole 40 mg PO DAILY 03/04/20 [History] Past Medical History - Past Health History Medical/Surgical History: Denies Medical/Surgical History HEENT History: Reports: Allergic Rhinitis, Other (See Below) Other HEENT History: wears glasses Cardiovascular History: Reports: None Respiratory History: Reports: Asthma Gastrointestinal History: Reports: GERD, Hiatal Hernia, Irritable Bowel Syndrome Genitourinary History: Reports: None [employer]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: Musculoskeletal History: Reports: Fracture Neurological History: Reports: None Psychiatric History: Reports: ADHD, Anxiety, Bipolar, Depression Endocrine/Metabolic History: Reports: Obesity/BMI 30+ Hematologic History: Reports: None Immunologic History: Reports: Other (See Below) Other Immunologic History: hx MRSA "years ago" Oncologic (Cancer) History: Reports: None Dermatologic History: Reports: None - Infectious Disease History Infectious Disease History: Reports: None - Past Surgical History Head Surgeries/Procedures: Reports: None HEENT Surgical History: Reports: Adenoidectomy, Myringotomy w Tube(s), Tonsillectomy, Other (See Below) Other HEENT Surgeries/Procedures: right ear surgery, Cardiovascular Surgical History: Reports: None Respiratory Surgical History: Reports: None GI Surgical History: Reports: Colonoscopy Female Surgical History: Reports: Section, LEEP, Tubal Ligation Other Female Surgeries/Procedures: x4 Endocrine Surgical History: Reports: None Neurological Surgical History: Reports: None Musculoskeletal Surgical History: Reports: ORIF Other Musculoskeletal Surgeries/Procedures:: hx ORIF of left fx tib fib Oncologic Surgical History: Reports: None Dermatological Surgical History: Reports: None Social & Family History - Family History Family Medical History: No Pertinent Family History - Tobacco Use Tobacco Use Status *Q: Current Every Day Tobacco User Years of Tobacco use: 20 Packs/Tins Daily: 1 - Caffeine Use Caffeine Use: Reports: Coffee - Recreational Drug Use Recreational Drug Use: No ED ROS GENERAL - Review of Systems Review Of Systems: See Below ED EXAM, SKIN/RASH Exam: See Below Exam Limited By: No Limitations General Appearance: Alert, WD/WN, No Apparent Distress Ears: Normal External Exam, Normal Canal, Hearing Grossly Normal, Normal TMs Nose: Normal Inspection, Normal Mucosa, No Blood Throat/Mouth: Normal Inspection, Normal Lips, Normal Teeth, Normal Gums, Normal Oropharynx, Normal Voice, No Airway Compromise Head: Atraumatic, Normocephalic Neck: Normal Inspection, Supple, Non-Tender, Full Range of Motion Respiratory/Chest: No Respiratory Distress, Lungs Clear, Normal Breath Sounds, No Accessory Muscle Use, Chest Non-Tender Cardiovascular: Normal Peripheral Pulses, Regular Rate, Rhythm, No Edema, No Gallop, No JVD, No Murmur, No Rub GI/Abdominal: Normal Bowel Sounds, Soft, Non-Tender, No Organomegaly, No Di stention, No Abnormal Bruit, No Mass (Female) Exam: Normal External Exam, Normal Speculum Exam, Normal Bimanual Exam Rectal (Female) Exam: Normal Exam, Normal Rectal Tone Back Exam: Normal Inspection, Full Range of Motion, NT Extremities: Normal Inspection, Normal Range of Motion, Non-Tender, No Pedal Edema, Normal Capillary Refill Neurological: Alert, Oriented, CN II-XII Intact, Normal Cognition, Normal Gait, Normal Reflexes, No Motor/Sensory Deficits Psychiatric: Normal Affect, Normal Mood Lymphatic: No Adenopathy ED SKIN PROCEDURES - Laceration/Wound Repair Left Posterior Hand Appearance: Superficial Distal NVT: Neuro & Vascular Intact, No Tendon Injury Anesthetic Type: Local Local Anesthesia - Lidocaine (Xylocaine): 1% with EPI Local Anesthetic Volume: 3cc Skin Prep: Saline Exploration/Debridement/Repair: Wound Explored, In a Bloodless Field, Foreign Material Removed Closed with: Sutures Lac/Wound length In cm: 3 Suture Size: 3-0 # of Sutures: 8 Suture Type: Nylon Drain Placement: No Sterile Dressing Applied: Nurse Tetanus Status Addressed: Yes (Up to date per patient.) Complications: No Complication Description: Small microscopic metallic appearing foreign bodies noted on x-ray. Wound was copiously irrigated we did not notice any gross foreign bodies after the wound was irrigated. There was a small amount of burn tissue that was excised. Course - Vital Signs Text/Narrative:: 35-year-old female presenting with a laceration to the dorsal surface of the left hand. Neurovascularly intact, normal sensation and normal tendon function. We initially applied a tourniquet to assist with hemorrhage control. The tourniquet was only up for approximately 5 minutes and hemostasis was achieved, so the tourniquet was removed. The patient apparently had a near syncopal episode while she was in triage but quickly felt better after she was moved to the hospital bed and laid supine. She denies any chest discomfort or shortness of breath. She thinks that she had a near syncopal episode due to seeing blood. She is feeling much better now. IV access was established and the patient was given acetaminophen and fentanyl for pain relief. Tetanus immunization is up-to-date. The wound was then copiously irrigated with pressure. I did review hand x-rays and look like there was a small punctate metallic foreign body. This was approximately 0.4 mm in diameter based on measuring it on the software on the computer. After we copiously irrigated the wound, I did intensely explore the laceration and did not notice that there were any foreign bodies that I could identify or remove. There was some burn tissue which was sharply removed. Wound was then sutured as detailed in the procedure note. Patient is stable to discharge home will return to the ER in 10 to 14 days for suture removal. We discussed treatment with topical antibiotic ointment and patient was given instructions about bandaging. Return precautions were provided and all questions were answered prior to being discharged in good condition. Last Recorded V/S: Last Vital Signs Temp 36.1 C 08/16/20 11:11 Pulse 79 08/16/20 12:06 Resp 16 08/16/20 12:06 BP 127/90 08/16/20 12:06 Pulse Ox 96 08/16/20 12:06 - Orders/Labs/Meds Orders: Active Orders 24 hr Category Date Time Status Bacitracin [Bacitracin Oint 1 GM] Med 08/16/20 12:36 Once 1 dose TOP ONETIME ONE Medication Orders Bacitracin (Bacitracin Oint 1 Gm) 1 dose TOP ONETIME ONE Stop: 08/16/20 12:37 Meds: Medications Generic Name Dose Route Start Last Admin Trade Name Freq PRN Reason Stop Dose Admin Bacitracin 1 dose 08/16/20 12:36 Bacitracin Oint 1 Gm TOP 08/16/20 12:37 ONETIME ONE Discontinued Medications Generic Name Dose Route Start Last Admin Trade Name Freq PRN Reason Stop Dose Admin Acetaminophen 1,000 mg 08/16/20 11:16 08/16/20 11:20 Tylenol Extra Strength PO 08/16/20 11:17 1,000 mg ONETIME ONE Administration Fentanyl 100 mcg 08/16/20 11:16 08/16/20 11:21 Fentanyl IVPUSH 08/16/20 11:17 100 mcg ONETIME ONE Administration Lidocaine/Epinephrine 10 ml 08/16/20 11:17 08/16/20 11:32 Xylocaine 1% With Epinephrine 1:100,000 INJECT 08/16/20 11:18 Not Given ONETIME ONE Lidocaine/Epinephrine Confirm 08/16/20 11:19 08/16/20 11:24 Xylocaine 1% With Epinephrine 1:100,000 Administered 08/16/20 11:20 Not Given Dose 20 ml .ROUTE .STK-MED ONE Lidocaine/Epinephrine 10 ml 08/16/20 11:28 08/16/20 11:32 Xylocaine 1% With Epinephrine 1:100,000 INJECT 08/16/20 11:29 Not Given ONETIME ONE Lidocaine/Epinephrine 20 ml 08/16/20 11:29 08/16/20 11:32 Xylocaine 1% With Epinephrine 1:100,000 INJECT 08/16/20 11:30 20 ml ONETIME ONE Administration Departure - Departure Time of Disposition: 12:33 Disposition: Home, Self-Care 01 Condition: Good Clinical Impression: Laceration of left hand Qualifiers: Encounter type: initial encounter Foreign body presence: unspecified Qualified Code(s): S61.412A - Laceration without foreign body of left hand, initial encounter - Discharge Information *PRESCRIPTION DRUG MONITORING PROGRAM REVIEWED*: Not Applicable *COPY OF PRESCRIPTION DRUG MONITORING REPORT IN PATIENT TAVIA: Not Applicable Instructions: Sutured Wound Care, Sutures, [place], or Adhesive Wound Closure Referrals: Emergency Room [Provider Group] - 2 Weeks (For suture removal.) Forms: ED Department Discharge Additional Instructions: Return to the emergency department in 10 to 14 days for suture removal. Warning signs to come back to the ER include: Redness, swelling, leakage of pus or fluids, chills, or fever of 100.4 or higher, or any other new or concerning symptoms. You can apply a thin layer of antibiotic ointment once daily and we will show you how to bandage the wound. You can let soapy water run over the wound but do not scrub it aggressively. Please return the emergency department immediately if your symptoms worsen or if you feel worse. Thank you for choosing the [facility] emergency department in [place] for your medical needs today. It was a pleasure caring for you. The following information is given to patients seen in the emergency department who are being discharged. This information is to outline your options for follow-up care. We provide all patients seen in our emergency department with a follow-up referral. The need for follow-up, as well as the timing and circumstances, are variable depending upon the specifics of your emergency department visit. If you don't have a primary care physician on staff, we will provide you with a referral. We always advise you to contact your personal physician following an emergency department visit to inform them of the circumstance of the visit and for follow-up with them and/or the need for any referrals to a consulting specialist. The emergency department will also refer you to a specialist when appropriate. This referral assures that you have the opportunity for follow-up care with a specialist. All of these measure are taken in an effort to provide you with optimal care, which includes your follow-up. Under all circumstances we always encourage you to contact your private physician who remains a resource for coordinating your care. When calling for follow-up care, please make the office aware that this follow-up is from your recent emergency room visit. If for any reason you are refused follow-up, please contact the [facility] Emergency Department at and asked to speak to the emergency department charge nurse. If you do not have a primary care physician that is caring for you, you can contact these clinics below to set up an appointment to establish care: [facility] [address] [place] [id number] [facility] [address] [place] [id number] Sepsis Event Note (ED) - Evaluation Sepsis Screening Result: No Definite Risk - Focused Exam Vital Signs: Vital Signs Temp Pulse Resp BP Pulse Ox 08/16/20 12:06 79 16 127/90 96 08/16/20 11:11 36.1 C 97 20 125/86 96 - My Orders Last 24 Hours: My Active Orders 08/16/20 12:36 Bacitracin [Bacitracin Oint 1 GM] 1 dose TOP ONETIME ONE - Assessment/Plan Last 24 Hours: My Active Orders 08/16/20 12:36 Bacitracin [Bacitracin Oint 1 GM] 1 dose TOP ONETIME ONE
[2020-08-16] MEDS ORDERED: Lidocaine 1% with EPINEPHrine 1:100,000 20 ML MDV INJECT ONE (11:29)
--- NOTE | 2020-08-16 12:02 | CR ---
Indication: Laceration over dorsal hand. Evaluate for foreign body. Technique: Three views of left hand Comparison: None Findings: No fracture or dislocation. Bones are in appropriate alignment. Soft tissues unremarkable. No radiopaque foreign body is noted. Impression: Normal hand radiographs. No radiopaque foreign body noted. Dictated by Georges Tamez MD @ Aug 16 2020 11:59AM Signed by Dr. Georges Tamez @ Aug 16 2020 12:00PM
[2020-08-16] MEDS ORDERED: Bacitracin Oint 1 GM U/D Packet TOP ONE (12:36)
[2020-08-16 12:43] VITALS: BP 132/84; PULSE 84
== END 2020-08-16 12:49 | disposition home or self-care (01) ==
LOC: MW.ED 11:00
DX: S61.412A Laceration without foreign body of left hand, initial encounter (principal); J45.909 Unspecified asthma, uncomplicated; K21.9 Gastro-esophageal reflux disease without esophagitis; E66.9 Obesity, unspecified; F41.9 Anxiety disorder, unspecified; F31.9 Bipolar disorder, unspecified; F17.210 Nicotine dependence, cigarettes, uncomplicated; Z90.49 Acquired absence of other specified parts of digestive tract; Z79.899 Other long term (current) drug therapy; W26.9XXA Contact with unspecified sharp object(s), initial encounter
CPT/HCPCS: 12042; 73130; 96374; 99283; A9270; J3010; 12002; 99282

== ENCOUNTER 2021-11-26 11:56 | Emergency (ER) | payer BC ==
[2021-11-26] MEDS ORDERED: diphenhydrAMINE 50 MG/ML SDV IVPUSH ONE (12:08)
[2021-11-26] MEDS ORDERED: Aspirin 81 MG Tab.Chew PO ONE (12:08)
[2021-11-26] MEDS ORDERED: Metoclopramide 10 MG/2 ML SDV IVPUSH ONE (12:08)
[2021-11-26] MEDS ORDERED: methylPREDNISolone Sodium Succinate 125 MG/2 ML SDV IVPUSH STA (12:08)
[2021-11-26] MEDS ORDERED: LORazepam 2 MG/ML SDV IVPUSH ONE (12:11)
[2021-11-26 13:01] LABS: BLOOD UREA NITROGEN,BUN 10 mg/dL (7.0-18.0); CARBON DIOXIDE,CO2 25.6 mmol/L (21.0-32.0); CHLORIDE,CL 104 mmol/L (98-107); ESTIMATED GFR > 60.0 ml/min; GLUCOSE RANDOM 119 mg/dL (74-106); LIPASE 136 U/L (73-393); POTASSIUM,K 4.1 mmol/L (3.5-5.1); SODIUM,NA 139 mmol/L (136-145)
[2021-11-26 14:29] VITALS: BP 131/84; PULSE 96
[2021-11-26] MEDS ORDERED: Iopamidol 755 MG/ML 500 ML Multipack Bottle IVPUSH ONE (17:58)
== END 2021-11-26 14:27 | disposition home or self-care (01) ==
LOC: MW.ED 11:56
DX: T78.40XA Allergy, unspecified, initial encounter (principal); R51.9 Headache, unspecified; K21.9 Gastro-esophageal reflux disease without esophagitis; E66.9 Obesity, unspecified; Z68.38 Body mass index [BMI] 38.0-38.9, adult; Z79.899 Other long term (current) drug therapy
CPT/HCPCS: 36415; 70450; 70496; 70498; 71045; 80053; 83690; 84484; 84703; 85025; 93005; 96374; 96375; 99285; A9270; J1200; J2060; J2765; J2930; Q9967; 93010; 99284

== ENCOUNTER 2022-07-15 11:29 | Emergency (ER) | payer BC ==
[2022-07-15 13:06] LABS: CARBON DIOXIDE,CO2 24.4 mmol/L (21.0-32.0); POTASSIUM,K 3.4 mmol/L (3.5-5.1)
[2022-07-15 13:45] LABS: CORONAVIRUS COVID-19 NAA NEGATIVE (NEGATIVE); INFLUENZA A NAA NEGATIVE (NEGATIVE); INFLUENZA B NAA NEGATIVE (NEGATIVE); RESPIRATORY SYNCYTIAL VIR NAA NEGATIVE (NEGATIVE)
== END 2022-07-15 14:10 | disposition home or self-care (01) ==
LOC: MW.ED 11:29
DX: J18.9 Pneumonia, unspecified organism (principal); J45.909 Unspecified asthma, uncomplicated; K21.9 Gastro-esophageal reflux disease without esophagitis; E66.9 Obesity, unspecified; Z68.41 Body mass index [BMI] 40.0-44.9, adult; Z79.899 Other long term (current) drug therapy; Z20.822 Contact with and (suspected) exposure to COVID-19
CPT/HCPCS: 0241U; 36415; 71046; 80053; 83605; 85025; 99283

== ENCOUNTER 2022-08-03 18:13 | Emergency (ER) | payer BC ==
[2022-08-03 21:05] LABS: CORONAVIRUS COVID-19 NAA POSITIVE (NEGATIVE); INFLUENZA A NAA NEGATIVE (NEGATIVE); INFLUENZA B NAA NEGATIVE (NEGATIVE)
[2022-08-03] MEDS ORDERED: Albuterol 8 GM Inhaler INH STA (21:53)
[2022-08-03] MEDS ORDERED: Amoxicillin 500 MG Cap PO STA (21:54)
[2022-08-03 22:12] LABS: CARBON DIOXIDE,CO2 27.9 mmol/L (21.0-32.0); POTASSIUM,K 3.8 mmol/L (3.5-5.1)
== END 2022-08-03 22:06 | disposition home or self-care (01) ==
LOC: MW.ED 18:13
DX: U07.0 Vaping-related disorder (principal); J12.82 Pneumonia due to coronavirus disease 2019; K21.9 Gastro-esophageal reflux disease without esophagitis; E66.9 Obesity, unspecified; Z68.41 Body mass index [BMI] 40.0-44.9, adult; Z79.899 Other long term (current) drug therapy
CPT/HCPCS: 0240U; 36415; 71046; 80053; 85025; 99285; A9270

== ENCOUNTER 2022-09-15 13:57 | Emergency (ER) | payer BC ==
[2022-09-15 19:03] LABS: C. TRACHOMATIS BY PCR NOT DETECTED; N. GONORRHOEAE BY PCR NOT DETECTED
== END 2022-09-15 19:22 | disposition home or self-care (01) ==
LOC: MW.ED 13:57
DX: N76.0 Acute vaginitis (principal); B96.89 Other specified bacterial agents as the cause of diseases classified elsewhere; F17.210 Nicotine dependence, cigarettes, uncomplicated; E66.9 Obesity, unspecified; Z68.41 Body mass index [BMI] 40.0-44.9, adult; Z79.899 Other long term (current) drug therapy
CPT/HCPCS: 81003; 87480; 87491; 87510; 87591; 87660; 99283

== ENCOUNTER 2022-12-03 09:45 | Day surgery (SDC) | payer BC ==
[~2022-12-03 09:45] MED LIST changes: +Lactated Ringers 1,000 ML IV SCH; -Sodium Chloride 0.9% 10 ML SDV IV PRN; -Sodium Chloride 0.9% 10 ML Syringe FLUSH PRN; -Sodium Chloride 0.9% 2.5 ML Syringe FLUSH PRN; -cefOXitin 2 GM in Premix Bag 1 BAG IV ONE
[2022-12-03] MEDS ORDERED: Lidocaine 2% 5 ML SDV ONE (10:55)
[2022-12-03] MEDS ORDERED: Propofol 200 MG/20 ML SDV ONE ×4 (10:55→11:53)
[2022-12-03] MEDS ORDERED: fentaNYL 100 MCG/2 ML SDV ONE (11:39)
[2022-12-03] MEDS ORDERED: Lactated Ringers 1,000 ML IV SCH (12:15)
== END 2022-12-03 12:50 | disposition home or self-care (01) ==
LOC: MW.SDS 09:45
PROVIDERS: ATTEND Surgery
DX: K29.50 Unspecified chronic gastritis without bleeding (principal); K31.89 Other diseases of stomach and duodenum; K29.00 Acute gastritis without bleeding; K44.9 Diaphragmatic hernia without obstruction or gangrene; K58.1 Irritable bowel syndrome with constipation; F90.9 Attention-deficit hyperactivity disorder, unspecified type; F41.9 Anxiety disorder, unspecified; J45.909 Unspecified asthma, uncomplicated; F31.9 Bipolar disorder, unspecified; E66.9 Obesity, unspecified; K21.9 Gastro-esophageal reflux disease without esophagitis; E78.5 Hyperlipidemia, unspecified; F17.210 Nicotine dependence, cigarettes, uncomplicated; Z86.010 Personal history of colon polyps; Z91.048 Other nonmedicinal substance allergy status; Z79.899 Other long term (current) drug therapy; Z98.890 Other specified postprocedural states; Z68.38 Body mass index [BMI] 38.0-38.9, adult
CPT/HCPCS: 43239; 45378; J2704; J3010; J7120; 00813; J3490